=== PATIENT | male | born 1950 | race Caucasian/White ===

== ENCOUNTER → 2016-12-03 12:55 | Outpatient (CLI) | payer MEDICARE, BC ==
[2015-10-30 10:07] VITALS: BMI 33.1
[~2016-12-03 12:55] MED LIST: ASPIRIN325 MG PO; CO Q-10200 MG PO; FENOFIBRATE PO; FISH OIL PO; HYDROCODONE-APA1 TAB PO; LASIX40 MG PO; MEDROL DOSE PACK4 MG PO; MICRO-K10 MEQ PO; NIASPAN500 MG PO; NITROSTAT0.4 MG SL; PRILOSEC20 MG PO; VALTREX1000 MG PO; VITAMIN B-1000 MCG/M IM; VITAMIN D250000 UNIT PO
== END | disposition home or self-care (01) ==
LOC: D.MRI 12-02 14:30
DX: M60.9 Myositis, unspecified (principal); R53.1 Weakness

== ENCOUNTER → 2017-03-30 10:00 | Outpatient (CLI) | payer MEDICARE, BC ==
[2015-10-30 10:07] VITALS: BMI 33.1
== END | disposition home or self-care (01) ==
LOC: D.US 10:00
DX: I65.21 Occlusion and stenosis of right carotid artery (principal)

== ENCOUNTER 2017-04-06 08:51 | Emergency (ER) | payer MEDICARE, BC ==
[2015-10-30 10:07] VITALS: BMI 33.1
[2017-04-06 09:32] LABS: BASOPHILS 0.3 % (0-2); EOSINOPHILS 2.2 % (0-7); HEMATOCRIT 43.4 % (42.0-54.0); HEMOGLOBIN 14.6 g/dL (13.5-17.5); IMMATURE GRANULOCYTES 0.2 % (0-5); MCH 31.9 pg (26.0-34.0); MCHC 33.6 g/dL (31.0-37.0); MEAN PLATELET VOLUME 10.9 fL (7.4-10.4); MONOCYTES 17.2 % (2-11); NEUTROPHILS 57.1 % (40-80); PLATELET COUNT 170 10x3/uL (130-400); RBC 4.57 10x6/uL (4.20-6.10); RDW 12.8 % (11.5-14.5)
[2017-04-06 09:48] LABS: ALBUMIN 3.7 g/dL (3.4-5.0); BILIRUBIN - TOTAL 0.2 mg/dL (0.2-1.3); CARBON DIOXIDE 28.2 mmol/L (21.0-32.0); CREATININE - SERUM 1.3 mg/dL (0.6-1.3); POTASSIUM - SERUM 4.2 mmol/L (3.5-5.1); PROTEIN - SERUM 7.5 g/dL (6.4-8.2)
== END 2017-04-06 10:35 | disposition home or self-care (01) ==
LOC: D.ER 08:51
PROVIDERS: Emergency Medicine
DX: S01.81XA Laceration without foreign body of other part of head, initial encounter (principal); X58.XXXA Exposure to other specified factors, initial encounter; Y93.89 Activity, other specified; Y92.89 Other specified places as the place of occurrence of the external cause; Z95.0 Presence of cardiac pacemaker; I12.9 Hypertensive chronic kidney disease with stage 1 through stage 4 chronic kidney disease, or unspecified chronic kidney disease; N18.9 Chronic kidney disease, unspecified

== ENCOUNTER → 2017-04-06 10:47 | Outpatient (CLI) | payer MEDICARE, BC ==
[2015-10-30 10:07] VITALS: BMI 33.1
== END | disposition home or self-care (01) ==
LOC: D.CT 09:00
DX: I25.10 Atherosclerotic heart disease of native coronary artery without angina pectoris (principal)

== ENCOUNTER → 2017-10-25 10:13 | Outpatient (CLI) | payer MEDICARE, BC ==
[2015-10-30 10:07] VITALS: BMI 33.1
== END | disposition home or self-care (01) ==
LOC: D.US 10-24 10:30
DX: I65.21 Occlusion and stenosis of right carotid artery (principal)

== ENCOUNTER 2018-03-23 07:03 | Emergency (ER) | payer MEDICARE, BC ==
[~2018-03-23] VITALS: Ht 172.7 cm; Wt 94.5 kg
[2018-03-23 07:11] VITALS: Ht 172.7 cm; Wt 94.5 kg
[2018-03-23] MEDS ORDERED: PLAVIX75 MG PO (07:13)
[2018-03-23] MEDS ORDERED: CORTISPORIN OTI10 M1 EACH EAR (07:35)
[2018-03-23 07:52] VITALS: BP 159/86
== END 2018-03-23 07:52 | disposition home or self-care (01) ==
LOC: D.ER 07:03
DX: T16.1XXA Foreign body in right ear, initial encounter (principal); X58.XXXA Exposure to other specified factors, initial encounter; Y93.89 Activity, other specified; Y92.018 Other place in single-family (private) house as the place of occurrence of the external cause; R42 Dizziness and giddiness; R11.0 Nausea; I12.9 Hypertensive chronic kidney disease with stage 1 through stage 4 chronic kidney disease, or unspecified chronic kidney disease; N18.3 Chronic kidney disease, stage 3 (moderate)

== ENCOUNTER 2018-05-02 08:47 | Outpatient (CLI) | payer MEDICARE, BC ==
[~2018-05-02] VITALS: Ht 172.7 cm; Wt 94.1 kg
[~2018-05-02 08:47] MED LIST changes: +CORTISPORIN OTI10 M1 EACH EAR; +PLAVIX75 MG PO
[2018-05-02] MEDS ORDERED: ZYLOPRIM300 MG PO (09:36)
[2018-05-02] MEDS ORDERED: BAYER CHEWABLE81 MG PO (09:37)
[2018-05-02] MEDS ORDERED: PEPCID40 MG PO (09:37)
[2018-05-02 09:45] VITALS: Ht 172.7 cm; Wt 94.1 kg
== END 2018-05-02 17:55 | disposition home or self-care (01) ==
LOC: D.OPS 08:47 → D.CT 11:30 → D.OPS 17:55
DX: I65.23 Occlusion and stenosis of bilateral carotid arteries (principal); Z01.812 Encounter for preprocedural laboratory examination

== ENCOUNTER 2018-07-16 11:41 | Observation (INO) | payer MEDICARE, BC ==
[~2018-07-16] VITALS: Ht 172.7 cm; Wt 91.4 kg
--- NOTE | ~2018-07-16 | HEMODYNAMI ---
PATIENT:YVES ALVARADO MEDICAL RECORD: [id number] : 52 LOCATION:[facility] D.2120 ADMISSION DATE: 07/16/18 Generatedon:07/17/201815:00 Patient name: YVES ALVARADO Patient #: [id number] SSN: : Date of study: 07/17/2018 Page: Of Hemodynamic Procedure Report Patient Data Patient Demographics Procedure consent was obtained First Name: YVES Gender: Male Last Name: CHRISTIANO : 1950 [facility] Initial: JR Age: 68 year(s) Patient #: [id number] Race: Unknown Additional ID: [id number] Contact details [address]: [address] [place] [address] [address]ET State: [place] City: [place] Zip code: [address] Admission Admission Data Admission Date: 07/16/2018 Admission Time: 14:17 Room #: D.2120 Weight (lbs.): 200.62 Weight (kg.): 91 Lab Results Lab Result Date: 07/17/2018 Lab Result Time: 0:00 Biochemistry Name Units Result Min Max BUN mg/dl 15 --(--*-)-- 7 18 Creatinine mg/dl 1.2 --(---*)-- 0.6 1.3 CBC Name Units Result Min Max Hemoglobin g/dl 14 --(*---)-- 13.5 17.5 Platelets 10^3/l 196 --(*---)-- 130 400 Procedure Procedure Types Cath Procedure Diagnostic Procedure C [facility] w/Coronaries PCI Procedure Coronary Stent Coronary Stent Initial Procedure Description Procedure Date Procedure Date: 07/17/2018 Procedure Start Time: 14:28 Procedure End Time: 14:55 Procedure Staff Name Function Dejon Zambrano MD Performing Physician Sanjeev Onofre RT Monitor Jabari Diaz RN Nurse Cresencio Harvey RT Scrub Boogie Sierra RN Digital Learning Platforms Manager Procedure Data Cath Procedure Fluoroscopy Diagnostic fluoroscopy Total fluoroscopy Time: 7.8 time: 7.8 min min Diagnostic fluoroscopy Total fluoroscopy dose: 553 dose: 553 mGy mGy Contrast Material Contrast Material Type Amount (ml) Isovue 300 100 Entry Location Entry Primary Successful Side Size Upsize Upsize Entry Closure Fleming ccessful Closure Location (Fr) 1 (Fr) 2 (Fr) Remarks Device Remarks Femoral Right 6 Fr Mechanical artery Short Compression Estimated blood loss: 10 ml Diagnostic catheters Device Type Used For End Catheter Placement DIAGNOSTIC [place] 110cm 5 Procedure Fr catheter ([id number]) DIAGNOSTIC JL 3.5 5Fr Procedure catheter ([id number]) Procedure Complications No complications Procedure Medications Medication Administration Route Dosage 0.9% NaCl I.V. 100 ml/hr Oxygen etCO2 Nasal cannula 2 l/min Heparin Flush Bag added to field 2 bags (1000units/500ml NS) Lidocaine 2% added to field 20 Radial Cocktail added to field 1 syringe (Verapomil 2mg/Nitro 400mcg/Heparin 1500units) Versed I.V. 2 mg Fentanyl I.V. 100 mcg Radial Cocktail I.A. 1 syringe (Verapomil 2mg/Nitro 400mcg/Heparin 1500units) Versed I.V. 1 mg Heparin Bolus I.V. 5000 units Plavix P.O. 75 mg Hemodynamics Rest HGB: 14 (g/dl) Heart Rate: 75 (bpm) Pressure Samples Time Site Value (mmHg) Purpose Heart Use Rate(bpm) 14:29 LV 73/-3,-2 Snapshot 75 14:30 AO 59/33(45) Pullback 76 14:30 LV 71/-2,0 Pullback 76 14:38 AO 70/40(53) Snapshot 73 Gradients Valve Time Site 1 Site 2 Mean SEP/DFP Peak To Heart Use (mmHg) (sec/min) Peak Rate (mmHg) (bpm) Aortic 14:30 LV AO 10 23 12 76 71/-2,0 59/33(45) Calculations Valve P-P Mean Valve Index Valve Source Name Gradient Area Flow (cm2) Aortic 12 10 12 10 Snapshots Pre Cath Intra NCS Post Cath Vital Signs Time Heart Resp SPO2 etCO2 NIBP (mmHg) Rhythm Pain Sedation Rate (ipm) (%) (mmHg) Status Level (bpm) 14:13:01 73 17 96 32.4 129/82(109) NSR 0 (11) 10(A) , No pain 14:17:18 69 14 91 38.4 131/71(98) NSR 0 (11) 10(A) , No pain 14:21:32 70 12 92 27.8 125/79(103) NSR 0 (11) 10(A) , No pain 14:25:42 71 14 93 36.9 110/66(81) NSR 0 (11) 10(A) , No pain 14:30:02 75 12 92 31.6 95/59(72) NSR 0 (11) 10(A) , No pain 14:34:12 72 14 92 34.6 105/66(78) NSR 0 (11) 9(A) , No pain 14:38:28 72 13 92 33.1 106/63(88) NSR 0 (11) 9(A) , No pain 14:42:42 72 12 91 33.1 106/66(90) NSR 0 (11) 9(A) , No pain 14:46:56 72 13 91 33.9 114/69(93) NSR 0 (11) 9(A) , No pain 14:51:15 68 13 93 33.9 115/64(84) NSR 0 (11) 10(A) , No pain 14:55:29 73 15 94 28.6 116/75(99) NSR 0 (11) 9(A) , No pain Medications Time Medication Route Dose Verified Delivered Reason Not es Effectiveness by by 14:14:28 0.9% NaCl I.V. 100 Jabari Jabari Per physician ml/hr Joe Diaz RN RN 14:14:40 Oxygen etCO2 2 l/min Jabari Jabari Per physician Nasal Sobeidaigan Joe cannula RN RN 14:14:53 Heparin Flush added 2 bags Jabari Jabari used for Bag to Lorigan Lorigan procedure (1000units/500ml field OLSON RN NS) 14:15:04 Lidocaine 2% added 20ml Jabari Jabari for local to vial Lorigan Lorigan anesthetic field OLSON RN 14:15:22 Radial Cocktail added 1 Jabari Jabari used for (Verapomil to syringe Lorigan Lorigan procedure 2mg/Nitro field OLSON RN 400mcg/Heparin 1500units) 14:26:45 Versed I.V. 2 mg Jabari Jabari for sedation Joe iDaz RN RN 14:27:17 Fentanyl I.V. 100 mcg Jabari Jabari for sedation Joe Diaz RN RN 14:27:48 Versed I.V. 1 mg Jabari Jabari for sedation Joe Diaz RN RN 14:28:25 Radial Cocktail I.A. 1 Jabari Ashford for (Verapomil syringe Joe Renteria John vasodilation 2mg/Nitro WESLEY WING 400mcg/Heparin 1500units) 14:44:16 Heparin Bolus I.V. 5000 Jabari Jabari for units Joe Diaz anticoagulation RN RN 14:54:37 Plavix P.O. 75 mg Jabari Jabari for Joe Diaz antiplatelet RN RN therapy Procedure Log Time Note 13:40:21 Boogie Sierra RN sent for patient. Start room use. 13:53:21 Time tracking: Regular hours (M-F 7:00 - 5:00) 13:53:27 Plan of Care:Hemodynamics will remain stable., Cardiac rhythm will remain stable., Comfort level will be maintained., Respiratory function will remain adequate., Patient/ family verbilizes understanding of procedure., Procedure tolerated without complication., Recovers from procedure without complications.. 13:54:03 Patient Weight : 200.62 lbs 13:54:27 Lab Result : Creatinine 1.2 mg/dl 13:54:27 Lab Result : BUN 15 mg/dl 13:54:27 Lab Result : Platelets 196 10^3/l 13:54:27 Lab Result : Hemoglobin 14 g/dl 13:54:44 H&P Date Dictated: 07/16/2018 Within 30 days and on chart.. 14:03:20 Patient received from Med II to CCL 3 Alert and oriented. Tansferred to table in Supine position. 14:03:28 Warm blankets applied, and kathleen hugger turned on for patient comfort. 14:03:33 Correct patient and procedure confirmed by team. 14:03:35 Signed procedure consent form obtained from patient. 14:03:35 ECG and BP/O2 sat monitors applied to patient. 14:11:40 Vital chart was started 14:11:42 Baseline sample Acquired. 14:14:28 0.9% NaCl 100 ml/hr I.V. was administered by Jabari Diaz RN; Per physician; 14:14:40 Oxygen 2 l/min etCO2 Nasal cannula was administered by Jabari Diaz RN; Per physician; 14:14:53 Heparin Flush Bag (1000units/500ml NS) 2 bags added to field was administered by Jabari Diaz RN; used for procedure; 14:15:04 Lidocaine 2% 20ml vial added to field was administered by Jabari Diaz RN; for local anesthetic; 14:15:22 Radial Cocktail (Verapomil 2mg/Nitro 400mcg/Heparin 1500units) 1 syringe added to field was administered by Jabari Diaz RN; used for procedure; 14::35 Rhythm: sinus rhythm 14::37 Full Disclosure recording started 14::38 Pre-procedure instructions explained to patient. 14::39 Pre-op teaching completed and patient verbalized understanding. 14:21:42 Family in patients room. 14::44 Patient NPO since Midnight. 14:21:46 Is the patient allergic to Iodine/contrast media? No. 14:21:47 Is patient on blood thinner?Yes 14:21:50 ACC The patient was administered the following blood thiners within the last 24 hours: ACCPlavix 14:21:53 Patient diabetic? No. 14:22:10 Previous problem with sedation/anesthesia? No ? 14:22:13 Snore? Yes 14:22:18 Sleep apnea? No 14:22:19 Deviated septum? No 14:22:20 Opens mouth fully? Yes 14:22:21 Sticks out tongue? Yes 14:22:22 Airway obstruction? No ? 14:22:24 Dentures? No ? 14:22:29 Pre procedure: right dorsailis pedis pulse 1+ Palpable, but thready & weak; easily obliterated 14:22:31 Modified Jr's test Ulnar < 7 seconds 14:22:33 Patient pain scale 0/10 ?. 14:22:37 IV patent on arrival in left forearm with 0.9% NaCl at [facility]. 14:22:39 Lab results completed and on chart. 14:22:45 Right Radial & Right Groin area was prepped with chlora-prep and draped in sterile fashion 14:22:46 Alarms reviewed by R. N. 14:22:46 Sharps counted by scrub and verified by R.N. 14:22:52 Use device set Radial Dx or PCI 14:22:56 ACIST Syringe (12492) opened to sterile field. 14:22:56 Medline Cath Pack ([id number]) opened to sterile field. 14:22:57 Bag Decanter (2001S) opened to sterile field. 14:22:58 ACIST Hand Control (59369) opened to sterile field. 14:22:59 ACIST Manifold (98386) opened to sterile field. 14:22:59 Tegaderm 4 x 4 (1626W) opened to sterile field. 14:23:00 DIAGNOSTIC WIRE .035 260cm J wire (314117) opened to sterile field. 14:23:01 MBrace Wrist Support ([id number]) opened to sterile field. 14:23:02 SHEATH 6FR Slender (87-8175) opened to sterile field. 14:23:10 --------ALL STOP TIME OUT------ 14:23:10 Final Timeout: patient, procedure, and site verified with staff and physician. All members of the team are in agreement. 14:23:13 Right Radial & Right Groin site verified by team. 14:23:16 Physical assessment completed. ASA score P 2 - A patient with mild systemic disease as per Dejon Zambrano MD. 14:23:19 Sedation plan: IV Moderate Sedation Medication:Versed, Fentanyl 14:26:45 Versed 2 mg I.V. was administered by Jabari Diaz RN; for sedation; 14:27:17 Fentanyl 100 mcg I.V. was administered by Jabari Diaz RN; for sedation; 14:27:48 Versed 1 mg I.V. was administered by Jabari Diaz RN; for sedation; 14::59 Procedure started. 14:28:06 Local anesthetic to right radial artery with Lidocaine 2% by Dejon Zambrano MD.INITIAL ACCESS ONLY 14:28:24 A 6 Fr Short sheath was inserted into the Right Femoral artery 14:28:25 Radial Cocktail (Verapomil 2mg/Nitro 400mcg/Heparin 1500units) 1 syringe I.A. was administered by Dejon Zambrano MD; for vasodilation; 14:28:30 A DIAGNOSTIC [place] 110cm 5 Fr catheter (256479) was advanced over the wire and used for Procedure. 14:29:01 Zero performed for pressure channel P1 14:29:58 LV angiography performed. 14:30:00 LV gram done using FITZPATRICK 14:30:14 EF : 55 % 14:30:52 Injector settings: Ml/sec: 7, Volume: 15, 14:32:05 RCA angiography performed. 14:33:32 Catheter removed. 14:33:44 GUIDE 6FR EBU 3.5 catheter ([id number]) opened to sterile field. 14:34:07 6 Fr EBU 3.5 guide catheter was inserted over the wire 14:36:49 Guide Catheter removed. unable to cannulate vessel. 14:37:10 A DIAGNOSTIC JL 3.5 5Fr catheter (854139P) was advanced over the wire and used for Procedure. 14:38:28 LCA angiography performed. 14:40:41 Catheter exchanged over wire. 14:40:47 Use device set [place] PCI 14:40:52 GUIDE 6FR HS I catheter (LA6HSI) opened to sterile field. 14:40:57 WHISPER 300cm guide wire ([id number]) opened to sterile field. 14:40:58 INFLATOR Merit BasixCompak (TY1841) opened to sterile field. 14:43:30 6 Fr HS 1 guide catheter was inserted over the wire 14:44:16 Heparin Bolus 5000 units I.V. was administered by Jabari Diaz RN; for anticoagulation; 14:45:18 WHISPER wire advanced. 14:46:16 Wire advanced across lesion. 14:50:53 Place stent Inflation Number: 1 A TITO OTW 3.0 x 12 stent ([id number]) was prepped and advanced across the Mid RCA. The stent was deployed at 14 ELDON for 0:10 (min:sec). 14:51:23 Stent catheter was removed intact over wire. 14:51:24 Wire removed. 14:51:24 Guide catheter removed. 14:51:29 TR BAND Standard ([id number]) opened to sterile field. 14:51:44 Sheath removed intact; hemostasis achieved with Mechanical Compression to the Right Femoral artery. 14:51:46 Procedure ended.(Physican Out) 14:52:25 Fluoroscopy time 07.80 minutes. 14:52:33 Fluoroscopy dose: 553 mGy 14:52:33 Flurop Dose total: 553 14:53:02 Contrast amount:Isovue 300 100ml. 14:53:04 Sharps counted by scrub and verified by R.N. 14:53:05 Insertion/operative site no bleeding no hematoma. 14:53:13 TR band inflated with 10cc of air. 14:53:16 Post Procedure Pulses reassessed and unchanged 14:53:19 Post-procedure physical assessment completed. ASA score P 2 - A patient with mild systemic disease as per Dejon Zambrano MD. 14:53:21 Post procedure rhythm: unchanged. 14:53:25 Estimated blood loss: 10 ml 14:53:28 Post procedure instruction explained to patient.Patient verbalizes understanding. 14:53:29 Patient needs reinforcement of post procedure teaching. 14:53:48 Procedure type changed to Cath procedure, Diagnostic procedure, LHC, LHC w/Coronaries, PCI procedure, Coronary Stent, Coronary Stent Initial 14:53:49 Procedure and supply charges have been captured, reviewed, submitted and are correct. 14:53:52 Procedure Complication : No complications 14:54:37 Plavix 75 mg P.O. was administered by Jabari Diaz RN; for antiplatelet therapy; 14:54:50 Vital chart was stopped 14:54:52 See physician's report for complete and final results. 14:55:22 Report given to [facility]. 14:55:26 Patient transfered to [facility] II with Bed. 14:55:30 Procedure ended. 14:55:30 Full Disclosure recording stopped 14:58:48 End room use (Document Last) Intervention Summary Intervention Notes Time ActionType Lesion and Equipment Action# Pressure Duration Attributes Used 14:50:53 Place stent Mid RCA TITO OTW 3.0 1 14 00:10 x 12 stent ([id number]) Device Usage Item Name Manufacture Quantity Catalog Hospital Part Current Minim al Lot# / Number Charge Number Stock Stock Serial# Code ACIST Syringe Acist 1 69017 752941 433467 754257 20 (04379) Medical Systems Inc Medline Cath Medline 1 [id number] 259653 31489 812421 5 Pack ([id number]) Bag Decanter Microtek 1 310187 43807 530342 5 () Medical Inc. ACIST Hand Acist 1 18246 660637 808777 802905 5 Control Medical (51028) Systems Inc ACIST Acist 1 17941 720241 813625 426123 5 Manifold Medical (15447) Systems Inc Tegaderm 4 x 3M 1 1626W 912726 046406 578746 5 4 (1626W) DIAGNOSTIC St Cesar 1 303916 479152 107995 306407 30 WIRE .035 260cm J wire (589984) MBrace Wrist Advanced 1 140-0250-00 786001 96984 825156 5 Support Vascular ([id number]) Dynamics SHEATH 6FR Terumo 1 [id number] 974289 315173 812621 40 Slender (80-1060) DIAGNOSTIC Terumo 1 40-5013 790780 696070 050357 5 [place] 110cm 5 Fr catheter (672574) GUIDE 6FR EBU Medtronic 1 [id number] 299336 57954 064684 3 3.5 catheter ([id number]) DIAGNOSTIC JL Cardinal 1 625863W 095425 075442 238977 5 3.5 5Fr Health catheter (742165N) GUIDE 6FR HS Medtronic 1 LA6HSI 446713 37201 100759 1 I catheter (LA6HSI) WHISPER 300cm Cyr 1 [id number] 101278 777824 080277 5 guide wire Vascular (4855274TH) INFLATOR Merit 1 WX2621 543154 113960 313968 15 [facility] Medical BasixCompak (SL1624) TITO OTW 3.0 Medtronic 1 [id number] 568824 650904 096274 5 [id number] x 12 stent ([id number]) TR BAND Terumo 1 JKC79-IVD 855078 703978 918447 40 Standard ([id number]) Signature Audit [place] Stage Time Signature Unsigned Intra-Procedure 07/17/2018 Sanjeev Onofre 3:00:05 PM RT(R) Signatures Monitor : Sanjeev Onofre RT Signature : Date : Time : [facility] [address] [facility] [place] [address]
--- NOTE | ~2018-07-16 | MORECARE ---
CASE MANAGEMENT DISCHARGE SUMMARY PATIENT: YVES ALVARADO UNIT: [id number] ADM DATE: 07/16/18 AGE: 68 : 51 SEX: M ROOM/BED: D.2120 AUTHOR: MIKE GOLD PHYSICIAN: REFERRING PHYSICIAN: WATSON HERNANDEZ MD DATE OF SERVICE: 07/19/18 Discharge Plan Patient Name: YVES ALVARADO [facility] 1950 Planned Disposition: Home Anticipated Discharge Date: 07/18/18 Discharge Date: 07/18/2018 Expected LOS: 2 Initial Reviewer: [email or web address] Initial Review Date: 07/19/2018 Generated: 07/19/18 10:00 am Coverage Notice Reviewer: [email or web address] Stalin Tristan Notice Issued Date-Time: 07/17/2018 14:25 Notice Type: Medicare Outpatient Observation Notice Notice Delivered To: Family Member Relationship to Patient: Spouse Body Corporate Manager Name: JAH ALVARADO Delivery Method: HAND - Hand Delivered Karuna Days: Prior Verbal Notification: Recipient Understood Notice: Yes Recipient Signature: Yes Med Rec Note Co-signed by Attending: Coverage Notice Comment: DISCUSSED SMITH WITH , WHO IS [facility] EMERGENCY CONTACT- 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 Patient Name: YVES ALVARADO Page [id number] at 0900 All edits/amendments must be made on the electronic document DICTATION DATE: 07/19/1859 LACE PINNER: [email or web address] 07/19/18 0859 RPT#: [id number] DC DATE:07/18/18 STATUS: DIS IN [facility] [address] [place] [address] END OF REPORT
--- NOTE | ~2018-07-16 | OP ---
PATIENT NAME: YVES ALVARADO MEDICAL RECORD: [id number] :52 LOCATION:D.M2 D.2120 ADMISSION DATE:07/16/18 SURGEON: VANESSA MORGAN MD DATE OF OPERATION: 07/17/2018 PROCEDURES: Left heart catheterization, selective coronary angiography, right radial approach. CATHETERS: A 5-Czech radial sheath, [place] catheter. The procedure was well tolerated. Proceed with a PTCA and stenting of the right. FINDINGS: Left ventriculography in 30-degree FITZPATRICK view: Normal wall motion, normal systolic function. CORONARY ANATOMY: LEFT MAIN: Left main is free of disease. LAD: LAD is free of disease. Area of previous stenting is widely patent. No progression of bishop paiute disease. CIRCUMFLEX: Small vessel, free of disease. RIGHT CORONARY ARTERY: Dominant artery, gives rise to PDA, shows 80% stenosis right at the takeoff of an RV branch. PLAN: Intervention momentarily. DESCRIPTION OF PROCEDURE: Using indwelling sheath, a hockey stick guide catheter provided excellent guide catheter support, followed by 300 cm Whisper wire, placed across totally occluded right coronary and distal course of vessel. Stent deployed is a 3.0 x 12 mm [place] drug-eluting stent up to 14 atmospheres. Final angiography shows excellent resolution of 80% stenosis, no significant residual. LARISSA flow was 3 throughout the procedure placed. The patient was previously on Plavix, heparin was used in the lab. Sheath closed with TR band. TRANSINT:[id number] Voice Confirmation ID: [id number] DOCUMENT ID: [id number] VANESSA MORGAN MD at 1310 CC: [id number] DICTATION DATE: 07/17/18 1459 BUMPER OPERATOR: 07/18/18 0048 DIS IN 07/18/18 [facility] [address] [place] [id number]
[~2018-07-16 11:41] MED LIST changes: +BAYER CHEWABLE81 MG PO; +PEPCID40 MG PO; +ZYLOPRIM300 MG PO
[2018-07-16 12:05] LABS: BASOPHILS 0.3 % (0-2); EOSINOPHILS 2.2 % (0-7); HEMATOCRIT 44.3 % (42.0-54.0); HEMOGLOBIN 14.9 g/dL (13.5-17.5); IMMATURE GRANULOCYTES 0.4 % (0-5); LYMPHOCYTES 24.2 % (15-50); MCH 32.1 pg (26.0-34.0); MCHC 33.6 g/dL (31.0-37.0); MCV 95.5 fL (80.0-100.0); MEAN PLATELET VOLUME 10.7 fL (7.4-10.4); MONOCYTES 18.7 % (2-11); NEUTROPHILS 54.2 % (40-80); PLATELET COUNT 197 10x3/uL (130-400); RBC 4.64 10x6/uL (4.20-6.10); RDW 13.4 % (11.5-14.5); WBC 7.2 10x3/uL (4.8-10.8)
[2018-07-16 12:10] VITALS: BP 191/152
[2018-07-16 12:13] LABS: APTT 30.6 SECONDS (22.8-39.4); INR 0.97 (0.85-1.17); PROTIME 12.4 SECONDS (11.6-15.0)
[2018-07-16 12:19] LABS: ALBUMIN 3.7 g/dL (3.4-5.0); ALKALINE PHOSPHATASE 56 U/L (46-116); ALT (SGPT) 43 U/L (10-68); BILIRUBIN - TOTAL 0.32 mg/dL (0.2-1.3); CALC OSMOLALITY 278 mosm/kg (275-300); CALCIUM 8.8 mg/dL (8.5-10.1); CARBON DIOXIDE 28.5 mmol/L (21.0-32.0); CHLORIDE - SERUM 103 mmol/L (98-107); CREATININE - SERUM 1.3 mg/dL (0.6-1.3); GLUCOSE 98 mg/dL (74-106); POTASSIUM - SERUM 4.2 mmol/L (3.5-5.1); PROTEIN - SERUM 7.8 g/dL (6.4-8.2); SODIUM 139 mmol/L (136-145); UREA NITROGEN 14 mg/dL (7-18); eGFR NON AFRICAN AMERICAN 58 mL/min (90-120)
[2018-07-16 12:30] LABS: CKMB 4.4 U/L (0.0-3.6); CREATINE KINASE 305 UL (21-232); MAGNESIUM - SERUM 1.9 mg/dL (1.8-2.4); PRO BNP 35 pg/mL (0-125)
[2018-07-16 12:31] LABS: TROPONIN-I < 0.017 ng/mL (0.000-0.060)
[2018-07-16 13:00] VITALS: BP 151/84
[2018-07-16 14:18] VITALS: BP 132/69
[2018-07-16 15:00] VITALS: BP 124/74
[2018-07-16 15:23] LABS: CKMB 3.7 U/L (0.0-3.6); CREATINE KINASE 268 UL (21-232)
[2018-07-16 15:26] LABS: TROPONIN-I < 0.017 ng/mL (0.000-0.060)
[2018-07-16] MEDS ORDERED: K-TAB10 MEQ PO (15:53)
[2018-07-16] MEDS ORDERED: PRINIVIL20 MG PO (15:54)
[2018-07-16] MEDS ORDERED: PEPCID40 MG PO (15:56)
[2018-07-16 15:57] VITALS: BP 125/69; BMI 30.4
[2018-07-16] MEDS ORDERED: ZYLOPRIM300 MG PO (15:59)
[2018-07-16] MEDS ORDERED: NORVASC2.5 MG PO (16:03)
[2018-07-16 20:25] LABS: CKMB 3.2 U/L (0.0-3.6); CREATINE KINASE 231 UL (21-232)
[2018-07-16 20:29] LABS: TROPONIN-I < 0.017 ng/mL (0.000-0.060)
[2018-07-16 20:30] VITALS: BP 118/69
[2018-07-16] MEDS ORDERED: LOPRESSOR25 MG PO (21:27)
[2018-07-17 02:56] LABS: BASOPHILS 0.3 % (0-2); EOSINOPHILS 2.9 % (0-7); HEMATOCRIT 41.5 % (42.0-54.0); IMMATURE GRANULOCYTES 0.5 % (0-5); LYMPHOCYTES 24.5 % (15-50); MCH 32.3 pg (26.0-34.0); MCHC 33.7 g/dL (31.0-37.0); MCV 95.6 fL (80.0-100.0); MEAN PLATELET VOLUME 10.6 fL (7.4-10.4); MONOCYTES 15.3 % (2-11); NEUTROPHILS 56.5 % (40-80); PLATELET COUNT 196 10x3/uL (130-400); RBC 4.34 10x6/uL (4.20-6.10); RDW 13.5 % (11.5-14.5); WBC 6.2 10x3/uL (4.8-10.8)
[2018-07-17 03:22] LABS: CALC OSMOLALITY 280 mosm/kg (275-300); CALCIUM 8.2 mg/dL (8.5-10.1); CARBON DIOXIDE 29.2 mmol/L (21.0-32.0); CHLORIDE - SERUM 103 mmol/L (98-107); CKMB 2.7 U/L (0.0-3.6); CREATINE KINASE 208 UL (21-232); CREATININE - SERUM 1.2 mg/dL (0.6-1.3); GLUCOSE 116 mg/dL (74-106); POTASSIUM - SERUM 3.9 mmol/L (3.5-5.1); SODIUM 140 mmol/L (136-145); UREA NITROGEN 15 mg/dL (7-18); eGFR NON AFRICAN AMERICAN 64 mL/min (90-120)
[2018-07-17 03:23] LABS: TROPONIN-I < 0.017 ng/mL (0.000-0.060)
[2018-07-17 08:54] VITALS: BP 121/71
[2018-07-17 15:28] VITALS: Ht 172.7 cm; Wt 91.4 kg
[2018-07-17] MEDS ORDERED: PLAVIX75 MG PO (15:41)
[2018-07-17 22:11] VITALS: BP 144/86
[2018-07-18 01:13] VITALS: BP 137/75
[2018-07-18 05:18] VITALS: BP 101/59
[2018-07-18 09:33] VITALS: BP 99/63
[2018-07-18 11:36] VITALS: BP 113/67
== END 2018-07-18 13:30 | disposition home or self-care (01) ==
LOC: D.ER 11:41 → D.EDHOLD 14:17 → D.ER 14:17 → OBSVTIME 14:18 → D.M2 14:52 → D.EDHOLD 14:52 → D.SDCHOLD 07-17 13:07 → D.M2 07-17 13:15
PROVIDERS: Family Medicine; Internal Medicine Cardiovascular Disease
DX: I25.110 Atherosclerotic heart disease of native coronary artery with unstable angina pectoris (principal); Z95.5 Presence of coronary angioplasty implant and graft; E78.5 Hyperlipidemia, unspecified; I12.9 Hypertensive chronic kidney disease with stage 1 through stage 4 chronic kidney disease, or unspecified chronic kidney disease; N18.3 Chronic kidney disease, stage 3 (moderate); Z86.73 Personal history of transient ischemic attack (TIA), and cerebral infarction without residual deficits; I73.9 Peripheral vascular disease, unspecified
CPT/HCPCS: 93458; C9600

== ENCOUNTER 2018-07-20 16:39 | Inpatient (IN) | payer MEDICARE, BC ==
[~2018-07-20] VITALS: Ht 172.7 cm; Wt 96.2 kg
[~2018-07-20 16:39] MED LIST changes: +K-TAB10 MEQ PO; +LOPRESSOR25 MG PO; +NORVASC2.5 MG PO; +PRINIVIL20 MG PO
[2018-07-20 18:09] LABS: BASOPHILS 0.2 % (0-2); EOSINOPHILS 0.9 % (0-7); HEMATOCRIT 46.3 % (42.0-54.0); IMMATURE GRANULOCYTES 0.3 % (0-5); LYMPHOCYTES 16.8 % (15-50); MCH 32.5 pg (26.0-34.0); MCHC 34.6 g/dL (31.0-37.0); MCV 93.9 fL (80.0-100.0); MEAN PLATELET VOLUME 10.9 fL (7.4-10.4); MONOCYTES 12.7 % (2-11); NEUTROPHILS 69.1 % (40-80); PLATELET COUNT 231 10x3/uL (130-400); RBC 4.93 10x6/uL (4.20-6.10); RDW 13.2 % (11.5-14.5); WBC 10.1 10x3/uL (4.8-10.8)
[2018-07-20 18:18] LABS: INR 1.09 (0.85-1.17); PROTIME 13.6 SECONDS (11.6-15.0)
[2018-07-20 18:20] LABS: D-DIMER-QUANTITATIVE 0.5 ug/mLFEU (0.20-0.54)
[2018-07-20 19:17] LABS: ALBUMIN 3.8 g/dL (3.4-5.0); ALKALINE PHOSPHATASE 55 U/L (46-116); ALT (SGPT) 33 U/L (10-68); BILIRUBIN - TOTAL 0.66 mg/dL (0.2-1.3); CALC OSMOLALITY 276 mosm/kg (275-300); CALCIUM 9.4 mg/dL (8.5-10.1); CARBON DIOXIDE 27.8 mmol/L (21.0-32.0); CHLORIDE - SERUM 98 mmol/L (98-107); CREATININE - SERUM 1.7 mg/dL (0.6-1.3); GLUCOSE 107 mg/dL (74-106); PROTEIN - SERUM 8.2 g/dL (6.4-8.2); SODIUM 134 mmol/L (136-145); UREA NITROGEN 37 mg/dL (7-18); eGFR NON AFRICAN AMERICAN 43 mL/min (90-120)
[2018-07-20 19:33] LABS: CKMB 3.2 U/L (0.0-3.6); CREATINE KINASE 449 UL (21-232); PRO BNP 24 pg/mL (0-125)
[2018-07-20 19:39] LABS: TROPONIN-I 0.161 ng/mL (0.000-0.060)
[2018-07-20 20:03] VITALS: BP 119/70
[2018-07-20 23:24] VITALS: BP 137/73; BMI 32.3
[2018-07-21] VITALS: BP 137/73
[2018-07-21 04:00] VITALS: BP 101/66
[2018-07-21 06:13] LABS: BASOPHILS 0.3 % (0-2); HEMATOCRIT 43.3 % (42.0-54.0); HEMOGLOBIN 14.5 g/dL (13.5-17.5); IMMATURE GRANULOCYTES 0.1 % (0-5); LYMPHOCYTES 26.9 % (15-50); MCH 31.7 pg (26.0-34.0); MCHC 33.5 g/dL (31.0-37.0); MCV 94.7 fL (80.0-100.0); MEAN PLATELET VOLUME 11.2 fL (7.4-10.4); MONOCYTES 14.4 % (2-11); NEUTROPHILS 55.3 % (40-80); PLATELET COUNT 202 10x3/uL (130-400); RBC 4.57 10x6/uL (4.20-6.10); RDW 13.2 % (11.5-14.5)
[2018-07-21 06:28] LABS: ALBUMIN 3.3 g/dL (3.4-5.0); ANION GAP 13.7 mmol/L (8-16); BILIRUBIN - TOTAL 0.61 mg/dL (0.2-1.3); CARBON DIOXIDE 26.3 mmol/L (21.0-32.0); CREATININE - SERUM 1.7 mg/dL (0.6-1.3); MAGNESIUM - SERUM 2.1 mg/dL (1.8-2.4); PHOSPHOROUS 3.8 mg/dL (2.5-4.9); PROTEIN - SERUM 7.4 g/dL (6.4-8.2)
[2018-07-21 09:03] VITALS: BP 127/75
[2018-07-21 12:24] VITALS: Ht 172.7 cm; Wt 96.2 kg
[2018-07-21 12:33] VITALS: BP 123/68
[2018-07-21 16:38] VITALS: BP 112/66
[2018-07-21 19:54] VITALS: BP 122/69
[2018-07-21 20:34] LABS: APPEARANCE CLEAR (CLEAR); BILIRUBIN NEGATIVE (NEGATIVE); COLOR YELLOW (YELLOW); GLUCOSE NEGATIVE (NEGATIVE); KETONE NEGATIVE (NEGATIVE); NITRITE NEGATIVE (NEGATIVE); PROTEIN NEGATIVE (NEGATIVE); SPECIFIC GRAVITY 1.015 (1.005-1.020)
[2018-07-22] VITALS (8 sets, daily range): BP systolic 111–142; BP diastolic 62–83
[2018-07-22 04:54] LABS: ANION GAP 9.9 mmol/L (8-16); CALCIUM 8.4 mg/dL (8.5-10.1); CARBON DIOXIDE 27.4 mmol/L (21.0-32.0); CREATININE - SERUM 1.3 mg/dL (0.6-1.3); POTASSIUM - SERUM 4.3 mmol/L (3.5-5.1)
[2018-07-22 04:55] LABS: BASOPHILS 0.4 % (0-2); EOSINOPHILS 4.2 % (0-7); HEMATOCRIT 42.2 % (42.0-54.0); IMMATURE GRANULOCYTES 0.2 % (0-5); LYMPHOCYTES 29.7 % (15-50); MCH 31.5 pg (26.0-34.0); MCHC 33.2 g/dL (31.0-37.0); MEAN PLATELET VOLUME 10.3 fL (7.4-10.4); MONOCYTES 15.8 % (2-11); NEUTROPHILS 49.7 % (40-80); PLATELET COUNT 199 10x3/uL (130-400); RBC 4.44 10x6/uL (4.20-6.10); RDW 13.1 % (11.5-14.5); WBC 5.3 10x3/uL (4.8-10.8)
[2018-07-23] VITALS: BP 130/71
[2018-07-23 04:00] VITALS: BP 129/68
[2018-07-23 06:05] LABS: BASOPHILS 0.3 % (0-2); EOSINOPHILS 3.9 % (0-7); HEMATOCRIT 41.8 % (42.0-54.0); HEMOGLOBIN 14.2 g/dL (13.5-17.5); IMMATURE GRANULOCYTES 0.2 % (0-5); LYMPHOCYTES 28.1 % (15-50); MCH 31.9 pg (26.0-34.0); MCV 93.9 fL (80.0-100.0); MEAN PLATELET VOLUME 11.1 fL (7.4-10.4); MONOCYTES 13.1 % (2-11); NEUTROPHILS 54.4 % (40-80); PLATELET COUNT 203 10x3/uL (130-400); RBC 4.45 10x6/uL (4.20-6.10); WBC 6.4 10x3/uL (4.8-10.8)
[2018-07-23 06:23] LABS: ANION GAP 14.1 mmol/L (8-16); CALCIUM 8.1 mg/dL (8.5-10.1); CARBON DIOXIDE 24.1 mmol/L (21.0-32.0); CREATININE - SERUM 1.1 mg/dL (0.6-1.3); POTASSIUM - SERUM 4.2 mmol/L (3.5-5.1)
[2018-07-23 08:35] VITALS: BP 140/84
[2018-07-23 12:08] VITALS: BP 131/81
== END 2018-07-23 15:53 | disposition home or self-care (01) | DRG 392 ==
LOC: D.ER 16:39 → D.MS 22:30 → OBSVTIME 23:03 → D.MS 07-21 16:31
PROVIDERS: Emergency Medicine; Family Medicine; Internal Medicine Nephrology
DX: R11.0 Nausea (principal); N17.9 Acute kidney failure, unspecified; E87.1 Hypo-osmolality and hyponatremia; I10 Essential (primary) hypertension; I25.10 Atherosclerotic heart disease of native coronary artery without angina pectoris; I12.9 Hypertensive chronic kidney disease with stage 1 through stage 4 chronic kidney disease, or unspecified chronic kidney disease; N18.3 Chronic kidney disease, stage 3 (moderate); R41.0 Disorientation, unspecified; K59.00 Constipation, unspecified

== ENCOUNTER → 2018-09-12 10:28 | Outpatient (CLI) | payer MEDICARE, BC ==
[2018-07-21 12:24] VITALS: BMI 32.2
== END | disposition home or self-care (01) ==
LOC: D.US 10:28
DX: I65.23 Occlusion and stenosis of bilateral carotid arteries (principal)

== ENCOUNTER → 2018-12-25 10:08 | Outpatient (CLI) | payer MEDICARE, BC ==
[2018-07-21 12:24] VITALS: BMI 32.2
== END | disposition home or self-care (01) ==
LOC: D.HCCARDIO 10:08
PROVIDERS: ATTEND Internal Medicine Cardiovascular Disease
DX: I25.10 Atherosclerotic heart disease of native coronary artery without angina pectoris (principal)

== ENCOUNTER 2019-01-17 12:12 | Outpatient (CLI) | payer MEDICARE, BC ==
[~2019-01-17] VITALS: Ht 172.7 cm; Wt 95.9 kg
--- NOTE | ~2019-01-17 | HEMODYNAMI ---
PATIENT:YVES ALVARADO MEDICAL RECORD: [id number] : 52 LOCATION:[facility] ADMISSION DATE: 01/17/19 Generatedon:01/17/201916:40 Patient name: YVES ALVARADO Patient #: [id number] SSN: : Date of study: 01/17/2019 Page: Of Hemodynamic Procedure Report Patient Data Patient Demographics Procedure consent was obtained First Name: YVES Gender: Male Last Name: CHRISTIANO : 1950 [facility] Initial: JAM Age: 69 year(s) Patient #: [id number] Race: Unknown Additional ID: [id number] Contact details Address: [address] [place] [address] [address]ET State: [place] City: [place] Zip code: [address] Past Medical History Allergies Allergen Reaction Date Comments Reported Other allergy 01/17/2019 CIPRO, LIPITOR, NITRO-BID, STATINS, ZOCOR Admission Admission Data Admission Date: 01/17/2019 Admission Time: 12:12 Weight (lbs.): 214 Weight (kg.): 97.07 Lab Results Lab Result Date: 01/17/2019 Lab Result Time: 0:00 Biochemistry Name Units Result Min Max BUN mg/dl 22 --(----)-* 7 18 Creatinine mg/dl 1.5 --(----)-* 0.6 1.3 CBC Name Units Result Min Max Hematocrit % 42.7 --(*---)-- 42 54 Hemoglobin g/dl 14.3 --(*---)-- 13.5 17.5 Procedure Procedure Types Cath Procedure Diagnostic Procedure [facility] w/Coronaries Sedation Charges Moderate Sedation up to 15 minutes Procedure Description Procedure Date Procedure Date: 01/17/2019 Procedure Start Time: 16:26 Procedure End Time: 16:39 Procedure Staff Name Function Jennifer Mckeon RN Hull Builder Jabari Diaz RN Nurse Sanjeev Onofre RT Scrub Kemar Iverson MD Performing Physician Andres Gillespie RT Monitor Procedure Data Cath Procedure Fluoroscopy Diagnostic fluoroscopy Total fluoroscopy Time: 1.6 time: 1.6 min min Diagnostic fluoroscopy Total fluoroscopy dose: 504 dose: 504 mGy mGy Contrast Material Contrast Material Type Amount (ml) Isovue 300 57 Entry Location Entry Primary Successful Side Size Upsize Upsize Entry Closure Succes sful Closure Location (Fr) 1 (Fr) 2 (Fr) Remarks Device Remarks Femoral Right 5 Fr Exoseal artery Estimated blood loss: 5 ml Diagnostic catheters Device Type Used For End Catheter Placement MULTIPACK JL 4.0 5Fr Procedure catheter MULTIPACK 3DRC 5Fr Procedure catheter MULTIPACK Pigtail 5 Fr Procedure catheter Procedure Complications No complications Procedure Medications Medication Administration Route Dosage 0.9% NaCl I.V. 100 ml/hr Oxygen etCO2 Nasal cannula 2 l/min Heparin Flush Bag added to field 2 bags (1000units/500ml NS) Lidocaine 2% added to field 20 Versed I.V. 1 mg Fentanyl I.V. 50 mcg Versed I.V. 1 mg Fentanyl I.V. 50 mcg Hemodynamics Rest HGB: 14.3 (g/dl) Heart Rate: 89 (bpm) Pressure Samples Time Site Value (mmHg) Purpose Heart Use Rate(bpm) 16:34 LV 109/2,14 Snapshot 75 16:35 AO 115/61(85) Pullback 79 16:35 LV 118/0,13 Pullback 79 Gradients Valve Time Site 1 Site 2 Mean SEP/DFP Peak To Heart Use (mmHg) (sec/min) Peak Rate (mmHg) (bpm) Aortic 16:35 LV AO 8 20 3 79 118/0,13 115/61(85) Calculations Valve P-P Mean Valve Index Valve Source Name Gradient Area Flow (cm2) Aortic 3 8 3 8 Snapshots Pre Cath Intra NCS Post Cath Vital Signs Time Heart Resp SPO2 etCO2 NIBP Rhythm Pain Sedation Rate (ipm) (%) (mmHg) (mmHg) Status Level (bpm) 16:04:45 85 24 97 32.8 139/82(97) NSR 0 (11) 10(A) , No pain 16:08:53 78 13 96 36.5 104/68(77) NSR 0 (11) 10(A) , No pain 16:13:01 61 13 96 37.3 97/62(72) NSR 0 (11) 10(A) , No pain 16:17:11 62 12 92 35.8 80/49(61) NSR 0 (11) 10(A) , No pain 16:21:17 62 12 95 40.3 91/49(73) NSR 0 (11) 10(A) , No pain 16:25:25 60 12 95 40.3 85/55(65) NSR 0 (11) 10(A) , No pain 16:29:24 65 15 97 37.3 101/71(83) NSR 0 (11) 9(A) , No pain 16:33:32 72 12 97 41.8 113/66(85) NSR 0 (11) 9(A) , No pain 16:37:44 72 12 98 41.8 107/67(89) NSR 0 (11) 10(A) , No pain Medications Time Medication Route Dose Verified Delivered Reason Notes Eff ectiveness by by 16:03:33 0.9% NaCl I.V. 100 Jabari Jabari Per ml/hr Joe Diaz physician RN RN 16:03:42 Oxygen etCO2 2 Jabari Jabari for low 02 Nasal l/min Lorigan Lorigan sats cannula RN RN 16:03:54 Heparin Flush added 2 Jabari Jabari used for Bag to bags Lorigan Lorigan procedure (1000units/500ml field RN RN NS) 16:04:04 Lidocaine 2% added 20ml Jabari Jabari for local to vial Lorigan Lorigan anesthetic field RN RN 16:20:34 Versed I.V. 1 mg Jabari Jabari for Lorigan Lorigan sedation RN RN 16:20:45 Fentanyl I.V. 50 Jabari Jabari for mcg Lorigan Lorigan sedation RN RN 16:24:52 Versed I.V. 1 mg Jabari Jabari for Lorigan Lorigan sedation RN RN 16:25:00 Fentanyl I.V. 50 Jabari Jabari for mcg Lorigan Lorigan sedation RN tar chaser Log Time Note 15:47:03 Signed procedure consent form obtained from patient. 15:47:05 Diagnostic Cath status Elective 15:47:06 Time tracking: Regular hours (M-F 7:00 - 5:00) 15:47:10 Plan of Care:Hemodynamics will remain stable., Cardiac rhythm will remain stable., Comfort level will be maintained., Respiratory function will remain adequate., Patient/ family verbilizes understanding of procedure., Procedure tolerated without complication., Recovers from procedure without complications.. 15:48:20 H&P Date Dictated: 12/18/2018 Within 30 days and on chart., H&P Addendum completed by physician on day of procedure. (MUST COMPLETE FOR ALL OUTPATIENTS). 15:49:22 Patient allergic to Other allergyCIPRO, LIPITOR, NITRO-BID, STATINS, ZOCOR 15:50:09 Jennifer Mckeon RN sent for patient. Start room use. 15:54:25 Patient Weight : 214 lbs 15:55:02 Lab Result : BUN 22 mg/dl 15:55:02 Lab Result : Creatinine 1.5 mg/dl 15:55:02 Lab Result : Hemoglobin 14.3 g/dl 15:55:02 Lab Result : Hematocrit 42.7 % 15:58:38 Patient received from Pre/Post Procedure Room to CCL 1 Alert and oriented. Tansferred to table in Supine position. 15:58:39 Warm blankets applied, and kathleen hugger turned on for patient comfort. 15:58:40 Correct patient and procedure confirmed by team. 15:58:41 ECG and BP/O2 sat monitors applied to patient. 16:03:33 0.9% NaCl 100 ml/hr I.V. was administered by Jabari Diaz RN; Per physician; 16:03:37 Vital chart was started 16:03:42 Oxygen 2 l/min etCO2 Nasal cannula was administered by Jabari Diaz RN; for low 02 sats; 16:03:54 Heparin Flush Bag (1000units/500ml NS) 2 bags added to field was administered by Jabari Diaz RN; used for procedure; 16:04:04 Lidocaine 2% 20ml vial added to field was administered by Jabari Diaz RN; for local anesthetic; 16:07:34 Full Disclosure recording started 16:07:39 Rhythm: sinus rhythm 16:07:41 Baseline sample Acquired. 16:07:42 Pre-procedure instructions explained to patient. 16:07:43 Pre-op teaching completed and patient verbalized understanding. 16:07:44 Family in patients room. 16:07:46 Patient NPO since Midnight. 16:07:48 Is patient on blood thinner?No 16:07:50 Patient diabetic? No. 16:07:52 Previous problem with sedation/anesthesia? No ? 16:07:54 Snore? Yes 16:07:56 Sleep apnea? No 16:07:58 Deviated septum? No 16:08:06 Opens mouth fully? Yes 16:08:08 Sticks out tongue? Yes 16:08:14 Airway obstruction? No ? 16:08:16 Dentures? No ? 16:08:19 Pre procedure: right dorsailis pedis pulse 2+ Normal; easily identifiable; not easily obliterated 16:08:23 Patient pain scale 0/10 ?. 16:08:29 IV patent on arrival in left hand with 0.9% NaCl at [facility]. 16:08:33 Lab results completed and on chart. 16:08:36 Right groin area was prepped with chlora-prep and draped in sterile fashion 16:08:37 Alarms reviewed by R. N. 16:08:37 Sharps counted by scrub and verified by R.N. 16:08:41 Use device set Femoral Dx 16:08:42 ACIST Syringe (18503) opened to sterile field. 16:08:42 Bag Decanter (2002S) opened to sterile field. 16:08:43 ACIST Manifold (45866) opened to sterile field. 16:08:44 ACIST Hand Control (70797) opened to sterile field. 16:08:45 Tegaderm 4 x 4 (1626W) opened to sterile field. 16:08:46 Medline Cath Pack ([id number]) opened to sterile field. 16:08:47 DIAGNOSTIC WIRE .035 260cm J wire (054796) opened to sterile field. 16:08:48 DIAGNOSTIC Multipack 5Fr catheter set (UZ4781) opened to sterile field. 16:08:48 SHEATH 5FR [place] (IPM932) opened to sterile field. 16:16:43 Zero performed for pressure channel P1 16:19:37 --------ALL STOP TIME OUT------ 16:19:37 Final Timeout: patient, procedure, and site verified with staff and physician. All members of the team are in agreement. 16:19:38 Right groin site verified by team. 16:19:41 Maximum allowable Isovue 300 dose 300ml. Physician notified. (300ml for normal creatinines. For patients with creatinine of 1.7 or higher multiply weight(kg) x 5 divided by creatinine.) 16:19:46 Fire Safety Assessment: A--An alcohol-based skin anteseptic being used preoperatively., C--Open oxygen or nitrous oxide is being used., D--An ESU, laser, or fiber-optic light is being used. 16:19:49 Physical assessment completed. ASA score P 2 - A patient with mild systemic disease as per Dejon Zambrano MD. 16:19:53 Sedation plan: IV Moderate Sedation Medication:Versed, Fentanyl 16:20:34 Versed 1 mg I.V. was administered by Jabari Diaz RN; for sedation; 16:20:45 Fentanyl 50 mcg I.V. was administered by Jabari Diaz RN; for sedation; 16:24:52 Versed 1 mg I.V. was administered by Jabari Diaz RN; for sedation; 16:25:00 Fentanyl 50 mcg I.V. was administered by Jabari Diaz RN; for sedation; 16:26:22 Procedure started. 16:26:28 Local anesthetic to right femoral artery with Lidocaine 2% by Kemar Iverson MD.INITIAL ACCESS ONLY 16:26:48 A 5 Fr sheath was inserted into the Right Femoral artery 16:29:40 A MULTIPACK JL 4.0 5Fr catheter was advanced over the wire and used for Procedure. 16:29:47 LCA angiography performed. 16:30:52 Catheter exchanged over wire. 16:31:17 A MULTIPACK 3DRC 5Fr catheter was advanced over the wire and used for Procedure. 16:31:37 RCA angiography performed. 16:32:37 Catheter exchanged over wire. 16:32:45 A MULTIPACK Pigtail 5 Fr catheter was advanced over the wire and used for Procedure. 16:34:37 LV gram done using FITZPATRICK 16:34:39 Injector settings: Ml/sec: 10, Volume: 20, 16:34:43 LV hemodynamics recorded. 16:34:48 EF : 55 % 16:35:04 Catheter removed. 16:35:17 EXOSEAL 5Fr (EX500) opened to sterile field. 16:35:35 Sheath removed intact; hemostasis achieved with Exoseal to the Right Femoral artery. 16:35:37 Procedure ended.(Physican Out) 16:36:05 Fluoroscopy time 01.60 minutes. 16:36:09 Flurop Dose total: 504 16:36:09 Fluoroscopy dose: 504 mGy 16:36:12 Contrast amount:Isovue 300 57ml. 16:36:13 Sharps counted by scrub and verified by R.N. 16:36:14 Insertion/operative site no bleeding no hematoma. 16:36:16 Post-op/insertion site Right Femoral artery dressed using a 4 x 4 and Tegaderm. 16:36:20 Post right femoral artery:stable, soft, clean and dry 16:38:23 Post Procedure Pulses reassessed and unchanged 16:38:26 Post procedure rhythm: unchanged. 16:38:30 Estimated blood loss: 5 ml 16:38:31 Post procedure instruction explained to patient.Patient verbalizes understanding. 16:38:32 Patient needs reinforcement of post procedure teaching. 16:38:41 Procedure type changed to Cath procedure, Diagnostic procedure, LHC, LHC w/Coronaries, Sedation Charges, Moderate Sedation up to 15 minutes 16:39:23 Procedure and supply charges have been captured, reviewed, submitted and are correct. 16:39:25 Procedure Complication : No complications 16:39:27 Vital chart was stopped 16:39:27 See physician's report for complete and final results. 16:39:29 Report given to Pre/Post Procedure Room. 16:39:32 Patient transfered to Pre/Post Procedure Room with Stretcher. 16:39:34 Procedure ended. 16:39:34 Full Disclosure recording stopped 16:39:42 End room use (Document Last) Device Usage Item Name Manufacture Quantity Catalog Hospital Part Current Minimal L ot# / Number Charge Number Stock Stock Serial# Code ACIST Acist 1 75551 613020 775033 581110 20 Syringe Medical (54672) Systems Inc Bag Microtek 1 826470 07477 348286 5 Decanter Medical Inc. () ACIST Acist 1 16233 441287 359554 115891 5 Manifold Medical (38517) Systems Inc ACIST Hand Acist 1 98869 362191 967985 702351 5 Control Medical (09489) Systems Inc Tegaderm 4 3M 1 1626W 588084 097849 835356 5 x 4 (1626W) Medline Medline 1 [id number] 354204 54999 626777 5 Cath Pack ([id number]) DIAGNOSTIC St Cesar 1 051167 153673 120425 731521 30 WIRE .035 260cm J wire (071758) DIAGNOSTIC Cardinal 1 QZ2342 614526 49861 308167 30 Multipack Health 5Fr catheter set (JE6447) SHEATH 5FR Terumo 1 BVE465 277798 283984 296315 5 [place] (YJR889) MULTIPACK Cardinal 1 744037 5 JL 4.0 5Fr Health catheter MULTIPACK Cardinal 1 881962 5 3DRC 5Fr Health catheter MULTIPACK Cardinal 1 379104 5 Pigtail 5 Health Fr catheter EXOSEAL 5Fr Cardinal 1 EX500 315409 118879 340182 10 (EX500) Health Signature Audit [place] Stage Time Signature Unsigned Intra-Procedure 01/17/2019 Andres Gillespie 4:40:17 PM RT(R) Signatures Monitor : Andres Gillespie RT Signature : Date : Time : [address] [address]
[2019-01-17] MEDS ORDERED: PRAVASTATIN SOD10 MG PO (12:31)
[2019-01-17 12:42] VITALS: BP 139/56; Ht 172.7 cm; Wt 95.9 kg
[2019-01-17 12:52] LABS: BASOPHILS 0.3 % (0-2); EOSINOPHILS 2.6 % (0-7); HEMATOCRIT 42.7 % (42.0-54.0); HEMOGLOBIN 14.3 g/dL (13.5-17.5); IMMATURE GRANULOCYTES 0.3 % (0-5); LYMPHOCYTES 24.8 % (15-50); MCH 31.3 pg (26.0-34.0); MCHC 33.5 g/dL (31.0-37.0); MCV 93.4 fL (80.0-100.0); MEAN PLATELET VOLUME 10.8 fL (7.4-10.4); MONOCYTES 11.4 % (2-11); NEUTROPHILS 60.6 % (40-80); PLATELET COUNT 189 10x3/uL (130-400); RBC 4.57 10x6/uL (4.20-6.10); RDW 13.7 % (11.5-14.5); WBC 7.3 10x3/uL (4.8-10.8)
[2019-01-17 12:59] LABS: ANION GAP 13.2 mmol/L (8-16); CALCIUM 9.4 mg/dL (8.5-10.1); CARBON DIOXIDE 26.8 mmol/L (21.0-32.0); CREATININE - SERUM 1.5 mg/dL (0.6-1.3)
--- NOTE | 2019-01-17 17:05 | NUR ---
2L NC, NO RESP DISTRESS. RIGHT GROIN 6F EXOSEAL CDI, NO BLEEDING OR HEMATOMA NOTED. NO C/O PAIN OR NAUSEA. VSS. FAMILY AT BEDSIDE, CALL LIGHT WITHIN REACH.
--- NOTE | 2019-01-17 17:35 | NUR ---
RESTING QUIETLY WITH EYES CLOSED. RIGHT GROIN 5F EXOSEAL CDI, NO BLEEDING OR HEMATOMA NOTED. DENIES ANY NEEDS. VSS. WILL CONTINUE TO MONITOR.
--- NOTE | 2019-01-17 18:00 | NUR ---
HOB ELEVATED 30 DEGREES. RIGHT GROIN 5F EXOSEAL CDI, NO BLEEDING OR HEMATOMA NOTED. SIPPING ON DRINK AND EATING SANDWICH WITH NO C/O NAUSEA. VSS. WILL CONTINUE TO MONITOR.
--- NOTE | 2019-01-17 18:05 | NUR ---
DISCHARGE INSTRUCTIONS GIVEN TO PT AND , BOTH VERBALIZED UNDERSTANDING.
--- NOTE | 2019-01-17 18:35 | NUR ---
LEFT PIV D/C'D WITH CATHETER INTACT, BAND AID TO SITE. RIGHT GROIN 5F EXOSEAL CDI, NO BLEEDING NOTED. UP TO BEDSIDE TO GET DRESSED. AMBULATED TO RESTROOM.
--- NOTE | 2019-01-17 18:45 | NUR ---
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 LEFT FACILITY WITH FAMILY AND ALL PERSONAL BELONGINGS.
== END 2019-01-17 18:45 | disposition home or self-care (01) ==
LOC: D.CATH 12:12
PROVIDERS: ATTEND Internal Medicine Cardiovascular Disease
DX: I20.9 Angina pectoris, unspecified (principal); R94.30 Abnormal result of cardiovascular function study, unspecified; Z01.812 Encounter for preprocedural laboratory examination

== ENCOUNTER → 2019-03-06 10:39 | Outpatient (CLI) | payer MEDICARE, BC ==
[2019-01-17 12:42] VITALS: BMI 32.1
[~2019-03-06 10:39] MED LIST changes: +PRAVASTATIN SOD10 MG PO
== END | disposition home or self-care (01) ==
LOC: D.HCCARDIO 10:39
PROVIDERS: ATTEND Internal Medicine Cardiovascular Disease
DX: I25.10 Atherosclerotic heart disease of native coronary artery without angina pectoris (principal)

== ENCOUNTER → 2019-03-27 10:26 | Outpatient (CLI) | payer MEDICARE, BC ==
[2019-01-17 12:42] VITALS: BMI 32.1
[~2019-03-27 10:26] MED LIST changes: +DURICEF500 MG PO; +HYDROCODON-ACE1 EAC7 PO; +PROTONIX40 MG PO; +XARELTO10 MG PO; +ZETIA10 MG PO
== END | disposition home or self-care (01) ==
LOC: D.US 10:26
PROVIDERS: ATTEND Family Medicine
DX: I65.23 Occlusion and stenosis of bilateral carotid arteries (principal)

== ENCOUNTER 2019-04-27 07:20 | Day surgery (SDC) | payer MEDICARE, BC ==
[2019-04-26 11:37] LABS: HEMATOCRIT 41.5 % (42.0-54.0); HEMOGLOBIN 14.3 g/dL (13.5-17.5); MCH 32.9 pg (26.0-34.0); MCHC 34.5 g/dL (31.0-37.0); MCV 95.6 fL (80.0-100.0); MEAN PLATELET VOLUME 10.5 fL (7.4-10.4); RBC 4.34 10x6/uL (4.20-6.10); RDW 13.7 % (11.5-14.5)
[2019-04-26 11:41] LABS: ANION GAP 9.8 mmol/L (8-16); CALCIUM 8.8 mg/dL (8.5-10.1); CARBON DIOXIDE 29.6 mmol/L (21.0-32.0); CREATININE - SERUM 1.2 mg/dL (0.6-1.3); POTASSIUM - SERUM 4.4 mmol/L (3.5-5.1)
[2019-04-26 11:57] LABS: PROTIME 12.7 SECONDS (11.6-15.0)
[2019-04-26 11:58] LABS: APTT 30.3 SECONDS (22.8-39.4)
[~2019-04-27] VITALS: Ht 172.7 cm; Wt 93.4 kg
[~2019-04-27 07:20] MED LIST changes: -DURICEF500 MG PO; -HYDROCODON-ACE1 EAC7 PO
[2019-04-27 07:48] VITALS: BP 131/76; Ht 172.7 cm; Wt 93.4 kg
[2019-04-27] MEDS ORDERED: HYDROCODON-ACE1 EAC7 PO (11:39)
[2019-04-27] MEDS ORDERED: DURICEF500 MG PO (11:39)
--- NOTE | 2019-04-27 13:33 | NUR ---
DISCHARGE INSTRUCTIONS REVIEWED WITH PATIENT AND SPOUSE, DISCHARGED HOME VIA WHEELCHAIR TO PRIVATE VEHICLE WITH SPOUSE
--- NOTE | 2019-04-28 08:37 | OP ---
PATIENT NAME: YVES ALVARADO MEDICAL RECORD: [id number] :52 LOCATION:[facility] ADMISSION DATE: SURGEON: JESUS RUIZ DO DATE OF OPERATION: 04/27/2019 PROCEDURE PERFORMED: Right middle finger trigger finger release and right ring finger revision trigger finger release. PREOPERATIVE DIAGNOSES: Right ring finger recurrent trigger finger and right middle finger trigger finger. POSTOPERATIVE DIAGNOSES: Right ring finger recurrent trigger finger and right middle finger trigger finger. INDICATIONS: Mr. Alvarado is a 69-year-old male who had the right ring finger trigger release done some time ago. It started to trigger again and the surgeon he had seen said that they would do it again, but he had the middle finger start up as well and he was sent to me. He said he wanted me to do it and do the right middle finger as well. I informed him I would and the risk of infection, bleeding, damage to the digital nerves due to the revision be more higher risk, but I would be very careful, bowstringing of the tendons and risk of that and need for further surgery. He was okay with that and signed the consent. SURGEON: Jesus Ruiz DO DESCRIPTION OF PROCEDURE: The patient was taken to the operative suite, laid in supine position. The right upper extremity was prepped and draped in sterile fashion after he was sedated and an LMA was placed, given 2 grams Ancef preoperatively. Timeout was performed and everyone was in agreement with the correct side, site, patient and procedure. The incision then began over the distal crease and the palm over the previous incision of the ring finger and extended over to the middle finger. Careful dissection was then made down to the A1 yohan of the ring finger. There was a nylon suture that was encountered. It was removed at that time. Then, the A1 yohan had been released. There were maybe a few fibers left of it that was released and part of the A2 yohan as well both distally and then there was some more synovitis proximally. This was removed off the flexor tendons. These were then pulled through the incision to ensure there was a complete release and there was. The attention was then drawn to the middle finger. Ragnells were used for careful dissection down to the tendon. The A1 yohan was encountered and cleaned off and released under direct loupe visualization and from proximal to distal and then also any fibers of the left were released proximally. The tendons were then pulled out through the incision to ensure there was no catching and there was not. The tourniquet was then let down at 17 minutes. The site was injected with 0.5% Marcaine with epinephrine 10 mL around the side and then 4-0 nylon was used in a running stitch to close the incision. Adaptic, 4 x 4's, Kerlix, and Coban was then lightly wrapped on the hand. He was awakened and taken to recovery in stable condition. Blood loss was minimal. COMPLICATIONS: None. TRANSINT:[id number] Voice Confirmation ID: [id number] DOCUMENT ID: [id number] OPERATIVE REPORT [id number] YVES ALVARADO MICHAEL D, DO at 0837 CC: [id number] DICTATION DATE: 04/27/19 1144 YARD CLEANER: 04/27/19 1301 [facility] 04/27/19 [id number] [place] [address]
== END 2019-04-27 13:33 | disposition home or self-care (01) ==
LOC: D.OPS 07:20 → D.PAN 09:30 → D.OPS 10:30
PROVIDERS: Anesthesiology; ATTEND Orthopaedic Surgery
DX: M65.331 Trigger finger, right middle finger (principal); M65.341 Trigger finger, right ring finger

== ENCOUNTER → 2019-04-30 12:00 | Outpatient (CLI) | payer MEDICARE, BC ==
[2019-04-27 07:48] VITALS: BMI 31.3
[~2019-04-30 12:00] MED LIST changes: +DURICEF500 MG PO; +HYDROCODON-ACE1 EAC7 PO
== END | disposition home or self-care (01) ==
LOC: D.US 12:00
PROVIDERS: ATTEND Internal Medicine Cardiovascular Disease
DX: I65.23 Occlusion and stenosis of bilateral carotid arteries (principal)

== ENCOUNTER 2019-06-15 05:30 | Day surgery (SDC) | payer MEDICARE, BC ==
[2019-06-14 11:36] LABS: HEMATOCRIT 44.1 % (42.0-54.0); HEMOGLOBIN 14.6 g/dL (13.5-17.5); MCH 32.5 pg (26.0-34.0); MCHC 33.1 g/dL (31.0-37.0); MCV 98.2 fL (80.0-100.0); MEAN PLATELET VOLUME 10.3 fL (7.4-10.4); RBC 4.49 10x6/uL (4.20-6.10); RDW 13.1 % (11.5-14.5)
[2019-06-14 12:03] LABS: ANION GAP 12.1 mmol/L (8-16); CALCIUM 8.8 mg/dL (8.5-10.1); CARBON DIOXIDE 27.3 mmol/L (21.0-32.0); CREATININE - SERUM 1.2 mg/dL (0.6-1.3); POTASSIUM - SERUM 4.4 mmol/L (3.5-5.1)
[~2019-06-15] VITALS: Ht 172.7 cm; Wt 93.4 kg
[2019-06-15 06:26] VITALS: BP 129/80; Ht 172.7 cm; Wt 93.4 kg
[2019-06-15] MEDS ORDERED: HYDROCODON-ACE1 EAC7 PO (07:46)
--- NOTE | 2019-06-15 09:01 | OP ---
PATIENT NAME: YVES ALVARADO MEDICAL RECORD: [id number] :52 LOCATION:[facility] ADMISSION DATE: SURGEON: JESUS RUIZ DO DATE OF OPERATION: 06/15/2019 PROCEDURE PERFORMED: Right trigger thumb A1 yohan release. PREOPERATIVE DIAGNOSIS: Right trigger thumb. POSTOPERATIVE DIAGNOSIS: Right trigger thumb. INDICATIONS: Mr. Alvarado is a 69-year-old male who had the beginnings of trigger thumb. He has had a previous trigger fingers released in the past and he has tired of dealing with the pain and he did not want to try injections as a child before and failed and he wanted it released. He was informed of the risk including damage to nerves in the area, infection, bleeding, need for further surgery, incomplete release, and bowstringing of the tendon. He is okay with those risks and signed the consent. SURGEON: Jesus Ruiz DO DESCRIPTION OF PROCEDURE: The patient was taken to the operative suite. I was assisted by Kemar Espinal, surgical certified surgical tech/first assistant. Once he was taken to the operative suite. He was given 2 grams Ancef and sedated and LMA was placed. The right upper extremity was then prepped and draped in sterile fashion. Timeout was performed, everyone was in agreement with the correct side, site, patient, and procedure. Incision then began along the crease of the thumb, right over the A1 yohan. Careful dissection was made. Once the incision was made on the skin with a scalpel, careful dissection was then made and blunt dissection with Ragnells down to the A1 yohan. This was then released and ensuring good release pulled the tendon out through the incision. The site was then anesthetized with 10 mL of 0.5% Marcaine plain and tourniquet was let down. The skin was then closed with 4-0 Monocryl in a horizontal mattress fashion. He was awakened and taken to recovery after a dressing was applied in stable condition. BLOOD LOSS: Minimal. COMPLICATIONS: None. TRANSINT:[id number] Voice Confirmation ID: [id number] DOCUMENT ID: [id number] JESUS RUIZ DO at 0901 CC: [id number] DICTATION DATE: 06/15/19 08 SOFTWARE TEST AUTOMATION ENGINEER: 06/15/19 0858 [facility] [address] [place] [address]
== END 2019-06-15 09:49 | disposition home or self-care (01) ==
LOC: D.OPS 05:30 → D.PAN 11:00
PROVIDERS: Anesthesiology; ATTEND Orthopaedic Surgery
DX: M65.311 Trigger thumb, right thumb (principal)

== ENCOUNTER → 2019-07-31 09:33 | Outpatient (CLI) | payer MEDICARE, BC ==
[~2019-07-31] VITALS: Ht 172.7 cm; Wt 93.6 kg
--- NOTE | ~2019-07-31 | HEMODYNAMI ---
PATIENT:YVES ALVARADO MEDICAL RECORD: [id number] : 52 LOCATION:[facility] ADMISSION DATE: 07/31/19 Generatedon:07/31/201914:28 Patient name: YVES ALVARDAO Patient #: [id number] : 1950 Date of study: 07/31/2019 Page: Of Hemodynamic Procedure Report Patient Data Patient Demographics Procedure consent was obtained First Name: YVES Gender: Male Last Name: CHRISTIANO : 1950 Middle Initial: JAM Age: 69 year(s) Patient #: [id number] Race: SSN: [id number] Additional ID: [id number] Contact details Address: [address] [place] [address] [address] State: [place] City: [place] Zip code: [address] Past Medical History Allergies Allergen Reaction Date Comments Reported Other allergy 01/17/2019 CIPRO, LIPITOR, NITRO-BID, STATINS, ZOCOR Admission Admission Data Admission Date: 07/31/2019 Admission Time: 9:33 Arrival Date: 07/31/2019 Arrival Time: 0:00 Admit Source: Other Insurance Payor: Medicare, Medicaid [facility] #: [id number] Height (in.): 68.11 BSA: 2.08 (m2) Height (cm.): 173 BMI: 31.41 (kg/m2) Weight (lbs.): 207.24 Weight (kg.): 94 Lab Results Lab Result Date: 07/31/2019 Lab Result Time: 0:00 Biochemistry Name Units Result Min Max BUN mg/dl 15 --(--*-)-- 7 18 Creatinine mg/dl 1.2 --(---*)-- 0.6 1.3 eGFR ml/min 64.92679 *-(----)-- 90 120 NONAFRICAN CBC Name Units Result Min Max Hemoglobin g/dl 14.2 --(*---)-- 13.5 17.5 Procedure Procedure Types Cath Procedure Diagnostic Procedure [facility] w/Coronaries Sedation Charges Moderate Sedation up to 15 minutes Procedure Description Procedure Date Procedure Date: 07/31/2019 Procedure Start Time: 14:15 Procedure End Time: 14:25 Procedure Staff Name Function Kemar Iverson MD Performing Physician Sahara Birmingham RT Monitor Janis Rocha RT Scrub Jabari Diaz RN Nurse Procedure Data Cath Procedure Fluoroscopy Diagnostic fluoroscopy Total fluoroscopy Time: 1.5 time: 1.5 min min Diagnostic fluoroscopy Total fluoroscopy dose: 445 dose: 445 mGy mGy Contrast Material Contrast Material Type Amount (ml) Isovue 300 45 Entry Location Entry Primary Successful Side Size Upsize Upsize Entry Closure Succes sful Closure Location (Fr) 1 (Fr) 2 (Fr) Remarks Device Remarks Femoral Right 5 Fr Exoseal artery Estimated blood loss: 5 ml Diagnostic catheters Device Type Used For End Catheter Placement MULTIPACK JL 4.0 5Fr Left Coronary catheter Angiography MULTIPACK 3DRC 5Fr Right Coronary catheter Angiography MULTIPACK Pigtail 5 Fr LV Angiography catheter Procedure Complications No complications Procedure Medications Medication Administration Route Dosage 0.9% NaCl I.V. 100 ml/hr Oxygen etCO2 Nasal cannula 2 l/min Heparin Flush Bag added to field 2 bags (1000units/500ml NS) Lidocaine 2% added to field 20 Versed I.V. 1 mg Fentanyl I.V. 50 mcg Versed I.V. 1 mg Fentanyl I.V. 50 mcg Hemodynamics Rest BSA: 2.08 (m2) HGB: 14.2 (g/dl) O2 Consumption: Estimated: 254.7 (ml/min) O2 Con sumption indexed: Estimated:122.45 (ml/min/m) Heart Rate: 87 (bpm) Pressure Samples Time Site Value (mmHg) Purpose Heart Use Rate(bpm) 14:23 LV 118/3,14 Snapshot 85 14:24 AO 113/70(81) Pullback 87 14:24 LV 110/-1,13 Pullback 87 Gradients Valve Time Site 1 Site 2 Mean SEP/DFP Peak To Heart Use (mmHg) (sec/min) Peak Rate (mmHg) (bpm) Aortic 14:24 LV AO 0 14 0 87 110/-1,13 113/70(81) Calculations Valve P-P Mean Valve Index Valve Source Name Gradient Area Flow (cm2) Aortic 0 0 0 0 Snapshots Pre Cath Intra NCS Post Cath Vital Signs Time Heart Resp SPO2 etCO2 NIBP Rhythm Pain Sedation Rate (ipm) (%) (mmHg) (mmHg) Status Level (bpm) 13:56:36 82 17 0 125/81(94) NSR 0 (11) 10(A) , No pain 14:00:45 85 21 97 0 115/76(87) NSR 0 (11) 10(A) , No pain 14:04:53 82 14 95 38.6 109/69(92) NSR 0 (11) 10(A) , No pain 14:08:59 80 15 97 33.3 100/68(84) NSR 0 (11) 10(A) , No pain 14:13:03 83 15 97 34 97/65(79) NSR 0 (11) 10(A) , No pain 14:17:04 79 12 95 38.5 98/67(80) NSR 0 (11) 9(A) , No pain 14:21:08 87 12 95 42.4 94/63(88) NSR 0 (11) 9(A) , No pain 14:25:08 85 12 96 42.4 98/70(81) NSR 0 (11) 9(A) , No pain Medications Time Medication Route Dose Verified Delivered Reason Notes Eff ectiveness by by 13:59:51 0.9% NaCl I.V. 100 Jabari Jabari Per ml/hr Joe Diaz physician RN RN 14:00:01 Oxygen etCO2 2 Jabari Jabari for low 02 Nasal l/min Lorigan Lorigan sats cannula RN RN 14:00:11 Heparin Flush added 2 Jabari Jabari used for Bag to bags Lorigan Lorigan procedure (1000units/500ml field RN RN NS) 14:00:20 Lidocaine 2% added 20ml Jabari Jabari for local to vial Lorigan Lorigan anesthetic field RN RN 14:06:13 Versed I.V. 1 mg Jabari Jabari for Lorigan Lorigan sedation RN RN 14:06:20 Fentanyl I.V. 50 Jabari Jabari for mcg Lorigan Lorigan sedation RN RN 14:12:57 Versed I.V. 1 mg Jabari Jabari for Lorigan Lorigan sedation RN RN 14:13:02 Fentanyl I.V. 50 Jabari Jabari for mcg Lorigan Lorigan sedation RN dry house tender Log Time Note 13:45:02 Jabari Diaz RN sent for patient. Start room use. 13:49:34 Diagnostic Cath Status : Elective 13:51:27 Lab Result : BUN 15 mg/dl 13:51:27 Lab Result : eGFR NONAFRICAN 64.28262 ml/min 13:51:27 Lab Result : Creatinine 1.2 mg/dl 13:51:27 Lab Result : Hemoglobin 14.2 g/dl 13:51:47 Informed consent obtained and on chart 13:54:20 Admit Source: Other 13:54:21 Arrival Date: 07/31/2019 12:00:00 AM 13:54:46 Insurance Payor : Medicare, Medicaid 13:54:52 Patient Height : 68.11 inches 13:54:57 Patient Weight : 207.24 lbs 13:55:08 Time tracking: Regular hours (M-F 7:00 - 5:00) 13:55:12 Plan of Care:Hemodynamics will remain stable., Cardiac rhythm will remain stable., Comfort level will be maintained., Respiratory function will remain adequate., Patient/ family verbilizes understanding of procedure., Procedure tolerated without complication., Recovers from procedure without complications.. 13:55:16 Patient received from Pre/Post Procedure Room to CCL 2 Alert and oriented. Tansferred to table in Supine position. 13:55:17 Warm blankets applied, and kathleen hugger turned on for patient comfort. 13:55:18 Correct patient and procedure confirmed by team. 13:55:18 ECG and BP/O2 sat monitors applied to patient. 13:55:19 Vital chart was started 13:55:21 Baseline sample Acquired. 13:55:25 Rhythm: sinus rhythm 13:57:16 Full Disclosure recording started 13:57:20 H&P Date Dictated: 07/31/2019 Within 30 days and on chart., H&P Addendum completed by physician on day of procedure. (MUST COMPLETE FOR ALL OUTPATIENTS). 13:57:21 Pre-procedure instructions explained to patient. 13:57:22 Pre-op teaching completed and patient verbalized understanding. 13:57:23 Family in patients room. 13:57:25 Patient NPO since Midnight. 13:57:26 Is the patient allergic to Iodine/contrast media? No. 13:57:28 Was the patient premedicated? Yes 13:57:30 Is patient on blood thinner?Yes 13:57:32 ACC The patient was administered the following blood thiners within the last 24 hours: ACCPlavix 13:57:34 Patient diabetic? No. 13:57:38 Previous problem with sedation/anesthesia? No ? 13:58:08 Snore? No 13:58:09 Sleep apnea? No 13:58:10 Deviated septum? No 13:58:10 Opens mouth fully? Yes 13:58:11 Sticks out tongue? Yes 13:58:12 Airway obstruction? No ? 13:58:15 Dentures? No ? 13:58:18 Pre procedure: right dorsailis pedis pulse 2+ Normal; easily identifiable; not easily obliterated 13:58:20 Pre procedure: left dorsailis pedis pulse 2+ Normal; easily identifiable; not easily obliterated 13:58:23 Patient pain scale 0/10 ?. 13:58:28 IV patent on arrival in left forearm with 0.9% NaCl at [facility]. 13:58:31 Lab results completed and on chart. 13:59:51 0.9% NaCl 100 ml/hr I.V. was administered by Jabari Diaz RN; Per physician; Verbal order read back and verified. 14:00:01 Oxygen 2 l/min etCO2 Nasal cannula was administered by Jabari Diaz RN; for low 02 sats; Verbal order read back and verified. 14:00:09 Risk of Mortality: <0.1 14:00:11 Heparin Flush Bag (1000units/500ml NS) 2 bags added to field was administered by Jabari Diaz RN; used for procedure; Verbal order read back and verified. 14:00:12 Risk of blood transfusion: 0.2 14:00:16 Risk of STACIE: 0.5 14:00:20 Lidocaine 2% 20ml vial added to field was administered by Jabari Diaz RN; for local anesthetic; Verbal order read back and verified. 14:00:22 Right groin area was prepped with chlora-prep and draped in sterile fashion 14:00:23 Alarms reviewed by RNena N. 14:00:23 Sharps counted by scrub and verified by RNenaN. 14:00:25 Physician arrived 14:00:25 --------ALL STOP TIME OUT------ 14:00:25 Final Timeout: patient, procedure, and site verified with staff and physician. All members of the team are in agreement. 14:00:27 Right groin site verified by team. 14:00:30 Fire Safety Assessment: A--An alcohol-based skin anteseptic being used preoperatively., C--Open oxygen or nitrous oxide is being used., D--An ESU, laser, or fiber-optic light is being used. 14:00:33 Physical assessment completed. ASA score P 2 - A patient with mild systemic disease as per Kemar Iverson MD. 14:00:35 2) 60-89 Mildly reduced kidney function, and other findings (as for stage 1) point to kidney disease. 14:00:53 Maximum allowable contrast dose (3.7 X eGFR X 0.75)177 ml. 14:00:56 Sedation plan: IV Moderate Sedation Medication:Versed, Fentanyl 14:06:13 Versed 1 mg I.V. was administered by Jabari Diaz RN; for sedation; Verbal order read back and verified. 14:06:20 Fentanyl 50 mcg I.V. was administered by Jabari Diaz RN; for sedation; Verbal order read back and verified. 14:08:34 Use device set Femoral Dx 14:08:35 ACIST Syringe (71018) opened to sterile field. 14:08:36 Bag Decanter (2002S) opened to sterile field. 14:08:36 Medline Cath Pack ([id number]) opened to sterile field. 14:08:38 ACIST Hand Control (70309) opened to sterile field. 14:08:38 ACIST Manifold (15240) opened to sterile field. 14:08:38 DIAGNOSTIC Multipack 5Fr catheter set (VG3058) opened to sterile field. 14:08:39 Tegaderm 4 x 4 (1626W) opened to sterile field. 14:08:40 SHEATH 5FR [place] ([id number]) opened to sterile field. 14:08:41 EMERALD Guide Wire (056-968) opened to sterile field. 14:12:57 Versed 1 mg I.V. was administered by Jabari Diaz RN; for sedation; Verbal order read back and verified. 14:13:02 Fentanyl 50 mcg I.V. was administered by Jabari Diaz RN; for sedation; Verbal order read back and verified. 14:13:14 Zero performed for pressure channel P1 14:15:39 Procedure started. 14:15:42 Local anesthetic to right femoral artery with Lidocaine 2% by Kemar Iverson MD.INITIAL ACCESS ONLY 14:16:07 A 5 Fr sheath was inserted into the Right Femoral artery 14:18:09 A MULTIPACK JL 4.0 5Fr catheter was advanced over the wire and used for Left Coronary Angiography. 14:18:40 LCA angiography performed. 14:18:42 Injector settings: Ml/sec: 3, Volume: 6, 14:19:05 Catheter removed. 14:19:24 A MULTIPACK 3DRC 5Fr catheter was advanced over the wire and used for Right Coronary Angiography. 14:20:54 RCA angiography performed. 14:20:56 Injector settings: Ml/sec: 3, Volume: 6, 14:21:36 Catheter removed. 14:21:53 ACCDominant side:Right 14:21:57 A MULTIPACK Pigtail 5 Fr catheter was advanced over the wire and used for LV Angiography. 14:23:20 LV hemodynamics recorded. 14:23:21 LV gram done using FITZPATRICK 14:23:24 Injector settings: Ml/sec: 5, Volume: 15, 14:23:37 EF : 55 % 14:24:00 Catheter removed. 14:24:02 EXOSEAL 5Fr (EX500) opened to sterile field. 14:24:34 Sheath removed intact; hemostasis achieved with Exoseal to the Right Femoral artery. 14:24:36 Procedure ended.(Physican Out) 14:24:44 Fluoroscopy time 01.50 minutes. 14:24:48 Flurop Dose total: 445 14:24:48 Fluoroscopy dose: 445 mGy 14:24:54 Dose Area Product 78726 mGy/cm. 14:24:57 Contrast amount:Isovue 300 45ml. 14:25:00 Maximum allowable dose exceeded? No. 14:25:01 Sharps counted by scrub and verified by R.N. 14:25:02 Insertion/operative site no bleeding no hematoma. 14:25:06 Post-op/insertion site Right Femoral artery dressed using a 4 x 4 and Tegaderm. 14:25:08 Post Procedure Pulses reassessed and unchanged 14:25:10 Post procedure rhythm: unchanged. 14:25:12 Estimated blood loss: 5 ml 14:25:14 Post procedure instruction explained to patient.Patient verbalizes understanding. 14:25:14 Patient needs reinforcement of post procedure teaching. 14:25:30 Procedure type changed to Cath procedure, Diagnostic procedure, LHC, LHC w/Coronaries, Sedation Charges, Moderate Sedation up to 15 minutes 14:25:31 Procedure and supply charges have been captured, reviewed, submitted and are correct. 14:25:35 Procedure Complication : No complications 14:25:38 Vital chart was stopped 14:25:44 [facility] Findings: mild to moderate CAD (<70%) 14:25:46 Operative report dictated upon procedure completion. 14:25:46 See physician's report for complete and final results. 14:25:49 Report given to Pre/Post Procedure Room. 14:25:52 Patient transfered to Pre/Post Procedure Room with Stretcher. 14:25:54 Procedure ended. 14:25:54 Full Disclosure recording stopped 14:25:59 End room use (Document Last) 14:26:58 End room use (Document Last) 14:27:22 End room use (Document Last) Device Usage Item Name Manufacture Quantity Catalog Hospital Part Current Minimal L ot# / Number Charge Number Stock Stock Serial# Code ACIST Acist 1 07726 370973 838979 [id number] 20 Syringe Medical (10677) Systems Inc Bag Microtek 1 371074 53038 942117 5 Decanter Medical Inc. () Medline Medline 1 [id number] 793245 88494 681742 5 Cath Pack ([id number]) ACIST Hand Acist 1 66998 614646 898906 036819 5 Control Medical (53894) Systems Inc ACIST Acist 1 22684 670743 597217 534181 5 Manifold Medical (23204) Systems Inc DIAGNOSTIC Cardinal 1 MQ0133 604564 01596 816229 30 MultipBug Music 5Fr catheter set (KD4662) Tegaderm 4 3M 1 1626W 583505 108287 668064 5 x 4 (1626W) SHEATH 5FR Terumo 1 LMW740 802720 929840 118158 5 [place] (ZVP878) EMERALD Cardinal 1 502-455 352750 881157 512253 5 Guide Wire Monteris Medical (502-455) MULTIPACK Cardinal 1 227555 5 JL 4.0 5Fr Health catheter MULTIPACK Cardinal 1 925744 5 3DRC 5Fr Health catheter MULTIPACK Cardinal 1 303664 5 Pigtail 5 Health Fr catheter EXOSEAL 5Fr Cardinal 1 EX500 141152 885292 329859 10 (EX500) Health Signature Audit [place] Stage Time Signature Unsigned Intra-Procedure 07/31/2019 Sahara Birmingham 2:26:58 PM RT(R) Intra-Procedure 07/31/2019 Jabari 2:27:22 PM Joe RN Intra-Procedure 07/31/2019 Kemar Iverson MD 2:28:55 PM Signatures Performing Physician : Signature : Kemar Iverson MD Date : Time : Monitor : Sahara Birmingham RT Signature : Date : Time : Nurse : Jabari Diaz Signature : RN Date : Time : [address] [place] [address]
[~2019-07-31 09:33] MED LIST changes: +HYDROCORTISONE30 G9 TOPICAL; +VITAMIN D5000 UNIT PO
[2019-07-31 11:03] VITALS: BP 120/78; Ht 172.7 cm; Wt 93.6 kg
[2019-07-31 11:28] LABS: BASOPHILS 0.3 % (0-2); EOSINOPHILS 1.5 % (0-7); HEMATOCRIT 43.4 % (42.0-54.0); HEMOGLOBIN 14.2 g/dL (13.5-17.5); IMMATURE GRANULOCYTES 0.1 % (0-5); LYMPHOCYTES 21.2 % (15-50); MCH 32.1 pg (26.0-34.0); MCHC 32.7 g/dL (31.0-37.0); MEAN PLATELET VOLUME 10.7 fL (7.4-10.4); MONOCYTES 10.1 % (2-11); NEUTROPHILS 66.8 % (40-80); PLATELET COUNT 216 10x3/uL (130-400); RBC 4.43 10x6/uL (4.20-6.10); RDW 13.1 % (11.5-14.5); WBC 7.9 10x3/uL (4.8-10.8)
[2019-07-31 11:41] LABS: ANION GAP 10.1 mmol/L (8-16); CALCIUM 9.1 mg/dL (8.5-10.1); CARBON DIOXIDE 28.1 mmol/L (21.0-32.0); CHOL - HDL RATIO 6.2 ratio (2.3-4.9); CREATININE - SERUM 1.2 mg/dL (0.6-1.3); LDL-HDL RATIO 2.9 ratio (1.5-3.5)
[2019-07-31 11:42] LABS: POTASSIUM - SERUM 4.2 mmol/L (3.5-5.1)
--- NOTE | 2019-07-31 14:35 | NUR ---
REC TO ROOM VIA STRETCHER. MONITORING INITIATED. R GROIN TEGADERM OVER 4X4 CDI, GROIN SOFT, NO BLEEDING/HEMATOMA. PPP. HR 82, NSR. BP 117/72, RESP RATE 14, SAT 97% ON 2LNC.
--- NOTE | 2019-07-31 14:50 | NUR ---
R GROIN SOFT, DRESSING CDI, NO BLEEDING/HEMATOMA. R PP STRONG, PALPABLE. NO COMPLAINTS.
--- NOTE | 2019-07-31 15:09 | NUR ---
HR 76, RR 14, SAT 97% ON 2LNC, NIBP 110/64.
--- NOTE | 2019-07-31 15:25 | NUR ---
R GROIN CDI, SOFT. NO HEMATOMA/BLEEDING. HR 82, NSR. SAT 96% ON 2LNC. BP 101/69.
--- NOTE | 2019-07-31 15:36 | NUR ---
HOB RAISED, PROVIDED SANDWICH AND SODA. R GROIN SOFT, CDI, NO BLEEDING/HEMATOMA.
--- NOTE | 2019-07-31 16:05 | NUR ---
R GROIN CDI, SOFT. NO BLEEDING OR HEMATOMA. PPP. IV REMOVED TIP INTACT, MONITORING DISCONTINUED. PT DRESSING WITH SON'S ASSISTANCE.
--- NOTE | 2019-07-31 16:30 | NUR ---
DC INSTRUCTIONS REVIEWED W PT AND SON. PT AMBULATED TO RESTROOM AND BACK TO ROOM WITHOUT ISSUE. DC HOME WITH SON VIA WHEELCHAIR TO PRIVATE CAR. PT HAS ALL BELONGINGS.
== END | disposition home or self-care (01) ==
LOC: D.CATH 06-28 09:00
PROVIDERS: ATTEND Internal Medicine Cardiovascular Disease
DX: R94.30 Abnormal result of cardiovascular function study, unspecified (principal); I25.118 Atherosclerotic heart disease of native coronary artery with other forms of angina pectoris; E78.5 Hyperlipidemia, unspecified

== ENCOUNTER 2020-02-19 14:47 | Emergency (ER) | payer MEDICARE, BC ==
[~2020-02-19] VITALS: Ht 172.7 cm; Wt 94.1 kg
[2020-02-19 15:05] VITALS: Ht 172.7 cm; Wt 94.1 kg
[2020-02-19 15:53] LABS: BASOPHILS 0.5 % (0-2); EOSINOPHILS 6.1 % (0-7); HEMATOCRIT 43.6 % (42.0-54.0); HEMOGLOBIN 14.4 g/dL (13.5-17.5); IMMATURE GRANULOCYTES 0.2 % (0-5); LYMPHOCYTES 24.7 % (15-50); MCH 31.9 pg (26.0-34.0); MCV 96.5 fL (80.0-100.0); MEAN PLATELET VOLUME 10.1 fL (7.4-10.4); MONOCYTES 11.4 % (2-11); NEUTROPHILS 57.1 % (40-80); PLATELET COUNT 194 10x3/uL (130-400); RBC 4.52 10x6/uL (4.20-6.10); RDW 13.1 % (11.5-14.5); WBC 6.2 10x3/uL (4.8-10.8)
[2020-02-19 16:00] LABS: BILIRUBIN NEGATIVE (NEGATIVE); GLUCOSE NEGATIVE (NEGATIVE); KETONE NEGATIVE (NEGATIVE); NITRITE NEGATIVE (NEGATIVE); SPECIFIC GRAVITY 1.025 (1.005-1.020); UROBILINOGEN NORMAL (NORMAL)
[2020-02-19 16:21] LABS: ANION GAP 11.4 mmol/L (8-16); CALCIUM 8.6 mg/dL (8.5-10.1); CARBON DIOXIDE 26.3 mmol/L (21.0-32.0); CREATININE - SERUM 1.3 mg/dL (0.6-1.3); POTASSIUM - SERUM 3.7 mmol/L (3.5-5.1)
[2020-02-19 16:26] LABS: ALBUMIN 3.6 g/dL (3.4-5.0); BILIRUBIN - TOTAL 0.49 mg/dL (0.2-1.3)
[2020-02-19] MEDS ORDERED: CYCLOBENZAPRINE5 MG PO (19:55)
[2020-02-19 20:05] VITALS: BP 132/78
== END 2020-02-19 20:05 | disposition home or self-care (01) ==
LOC: D.ER 14:47
PROVIDERS: Family Medicine
DX: R10.9 Unspecified abdominal pain (principal); Z86.73 Personal history of transient ischemic attack (TIA), and cerebral infarction without residual deficits

== ENCOUNTER → 2020-02-29 10:29 | Outpatient (CLI) | payer MEDICARE, BC ==
[2020-02-19 15:05] VITALS: BMI 31.5
[~2020-02-29 10:29] MED LIST changes: +CYCLOBENZAPRINE5 MG PO
== END | disposition home or self-care (01) ==
LOC: D.CT 10:29
PROVIDERS: ATTEND Clinical Nurse Specialist Adult Health
DX: J98.4 Other disorders of lung (principal)

== ENCOUNTER 2020-04-04 08:40 | Day surgery (SDC) | payer MEDICARE, BC ==
[2020-04-02 10:32] LABS: HEMATOCRIT 44.3 % (42.0-54.0); HEMOGLOBIN 14.4 g/dL (13.5-17.5); MCH 31.4 pg (26.0-34.0); MCHC 32.5 g/dL (31.0-37.0); MCV 96.7 fL (80.0-100.0); RBC 4.58 10x6/uL (4.20-6.10); WBC 6.3 10x3/uL (4.8-10.8)
[2020-04-02 10:44] LABS: ANION GAP 9.9 mmol/L (8-16); CALCIUM 8.6 mg/dL (8.5-10.1); CARBON DIOXIDE 29.5 mmol/L (21.0-32.0); CREATININE - SERUM 1.4 mg/dL (0.6-1.3); POTASSIUM - SERUM 4.4 mmol/L (3.5-5.1)
[2020-04-02 10:45] LABS: APTT 30.5 SECONDS (22.8-39.4); INR 0.95 (0.85-1.17); PROTIME 12.6 SECONDS (11.6-15.0)
[~2020-04-04] VITALS: Ht 172.7 cm; Wt 93.4 kg
[~2020-04-04 08:40] MED LIST changes: +CYANOCOBAL1000 MCG/4 IM
[2020-04-04 11:28] VITALS: Ht 172.7 cm; Wt 93.4 kg
--- NOTE | 2020-04-05 07:53 | OP ---
PATIENT NAME: YVES ALVARADO MEDICAL RECORD: [id number] :52 LOCATION:[facility] ADMISSION DATE: SURGEON: JESUS RUIZ DO DATE OF OPERATION: 04/04/2020 PROCEDURE PERFORMED: Right endoscopic carpal tunnel release. PREOPERATIVE DIAGNOSIS: Right carpal tunnel syndrome. POSTOPERATIVE DIAGNOSIS: Right carpal tunnel syndrome. INDICATIONS: Mr. Alvarado is a 70-year-old male who is well known to me, who has had carpal tunnel syndrome for quite some time and he wanted something done surgically. He had nerve conduction study showing severe carpal tunnel syndrome, both involve bilateral hands, he wanted the right one done first because that hurt him more. The patient was aware of the risk including infection, bleeding, damage to the median nerve and vessels, loss of function of the hand, continued pain and numbness and he signed the consent. SURGEON: Jesus Ruiz DO DESCRIPTION OF PROCEDURE: The patient was taken to the operative suite, laid in supine position, given general anesthetic, given Ancef and an LMA was placed. The right upper extremity was then prepped and draped in sterile fashion. A timeout was performed, everyone was in agreement with correct side, site, patient and procedure. We then began by making an incision centered over the palmaris longus tendon and with a 15 blade scalpel and then just through the skin and then use Ragnells to bluntly dissect down to the median nerve. Once the median nerve was identified, I released the fascia from distal to proximal at the site and then introduced the dilators into the carpal tunnel. I then put in the sheath and put the camera into the sheath. I then cleaned off the transverse carpal ligament with a rasp and a probe and brought in the blade, raised it up and transected. The transcarpal ligament was fat herniated down into the carpal tunnel indicating good release. We removed all the instruments and used a Ragnell and the scissors to ensure there was no remaining fibers to the transcarpal ligament was left. The tourniquet was then let down. It was raised up after exsanguinating the right upper extremity prior to starting to 250 mmHg, it was up for 9 minutes. I then injected the site with 0.25% Marcaine with epinephrine and then Cristal Espinal, certified breastfeeding educator, closed the site with 5-0 Monocryl in inverted interrupted fashion. Steri-Strips, Adaptic, 4 x 4's, Kerlix, and Coban was lightly wrapped on the wrist. He was then awakened and taken to recovery in stable condition. BLOOD LOSS: Minimal. COMPLICATION: None. TRANSINT:[id number] Voice Confirmation ID: [id number] DOCUMENT ID: [id number] OPERATIVE REPORT [id number] YVES ALVARADO MICHAEL D, DO at 0753 CC: [id number] DICTATION DATE: 04/04/20 1426 DEFENSIVE DRIVING INSTRUCTOR: 04/04/20 2252 [facility] 04/04/20 [facility] [address] [place] [address]
== END 2020-04-04 16:10 | disposition home or self-care (01) ==
LOC: D.OPS 08:40 → D.PAN 18:00 → D.OPS 18:00
PROVIDERS: ATTEND Orthopaedic Surgery
DX: G56.01 Carpal tunnel syndrome, right upper limb (principal); G56.02 Carpal tunnel syndrome, left upper limb; I25.10 Atherosclerotic heart disease of native coronary artery without angina pectoris; I65.23 Occlusion and stenosis of bilateral carotid arteries; I12.9 Hypertensive chronic kidney disease with stage 1 through stage 4 chronic kidney disease, or unspecified chronic kidney disease; N18.3 Chronic kidney disease, stage 3 (moderate); E78.5 Hyperlipidemia, unspecified

== ENCOUNTER → 2020-04-17 13:12 | Outpatient (CLI) | payer MEDICARE, BC ==
[2020-04-04 11:28] VITALS: BMI 31.3
== END | disposition home or self-care (01) ==
LOC: D.US 13:12
PROVIDERS: ATTEND Family Medicine
DX: I65.23 Occlusion and stenosis of bilateral carotid arteries (principal); R09.89 Other specified symptoms and signs involving the circulatory and respiratory systems

== ENCOUNTER 2020-05-09 05:35 | Day surgery (SDC) | payer MEDICARE, BC ==
[~2020-05-09] VITALS: Ht 172.7 cm; Wt 9.2 kg
[2020-05-09 06:02] LABS: HEMATOCRIT 42.6 % (42.0-54.0); HEMOGLOBIN 13.7 g/dL (13.5-17.5); MCHC 32.2 g/dL (31.0-37.0); MCV 96.4 fL (80.0-100.0); MEAN PLATELET VOLUME 10.5 fL (7.4-10.4); RBC 4.42 10x6/uL (4.20-6.10); RDW 13.3 % (11.5-14.5); WBC 6.2 10x3/uL (4.8-10.8)
[2020-05-09 06:06] LABS: APTT 29.9 SECONDS (22.8-39.4); INR 0.96 (0.85-1.17); PROTIME 12.7 SECONDS (11.6-15.0)
[2020-05-09 06:09] LABS: ANION GAP 10.7 mmol/L (8-16); CALCIUM 8.9 mg/dL (8.5-10.1); CARBON DIOXIDE 27.5 mmol/L (21.0-32.0); CREATININE - SERUM 1.4 mg/dL (0.6-1.3); POTASSIUM - SERUM 4.2 mmol/L (3.5-5.1)
[2020-05-09 06:15] VITALS: BP 114/72; Ht 172.7 cm; Wt 9.2 kg
--- NOTE | 2020-05-10 09:02 | OP ---
PATIENT NAME: YVES ALVARADO MEDICAL RECORD: [id number] :52 LOCATION:[facility]OPS ADMISSION DATE: SURGEON: JESUS RUIZ DO DATE OF OPERATION: 05/09/2020 PROCEDURE PERFORMED: Left endoscopic carpal tunnel release. PREOPERATIVE DIAGNOSIS: Left carpal tunnel syndrome. POSTOPERATIVE DIAGNOSIS: Left carpal tunnel syndrome. INDICATIONS: Mr. Alvarado is a 70-year-old male who has had carpal tunnel syndrome for quite some time. I did his right one a couple of weeks ago. He wanted the left one done today. He was aware of the risks including infection, bleeding, damage to nerves and vessels including the median nerve, continued pain, need for further surgery, swelling, and even and he signed the consent. SURGEON: Jesus Ruiz DO DESCRIPTION OF PROCEDURE: The patient was taken to the operative suite, laid in supine position, given 2 g of Ancef preoperatively. The patient was sedated and LMA was placed. The left upper extremity was then prepped and draped in sterile fashion. Time-out was performed. Everyone was in agreement with the correct site, side, patient, and procedure. I then exsanguinated the left upper extremity with an Esmarch. Tourniquet was inflated to 250 mmHg and was up for 8 minutes. I then began by making an incision centered over the palmaris longus tendon at the volar wrist crease. I then made an incision with a 15 blade scalpel and then made blunt dissection down with Ragnell to the median nerve, released the fascia from distal to proximal at the wrist, and then entered the carpal tunnel with the dilators. I then put in the sheath and the camera. I used a probe and a rasp to clean off transcarpal ligament. I then brought the blade in and raised it up and transected the transcarpal ligament. I then removed all fat and herniated then down into the carpal tunnel. I then brought in a Ragnell and scissors and under direct magnification with loupes, I saw that the transverse carpal ligament was transected. I then injected the site with 10 mL of 0.25% Marcaine with epinephrine. The tourniquet was let down. Steven Nash, certified ophthalmology surgical technician, then closed the site with 5-0 Monocryl in inverted interrupted fashion. Steri-Strips, Adaptic, 4 x 4, and cast padding and Coban was lightly wrapped on the hand. He was awakened and taken to recovery in stable condition. Blood loss minimal. Complications none. Tourniquet was up for 8 minutes. NTS:[id number] Voice Confirmation ID: [id number] DOCUMENT ID: [id number] JESUS RUIZ DO at 0902 CC: [id number] DICTATION DATE: 05/09/20835 MEDICAL CODING SPECIALIST: 05/09/201952 [facility] 05/09/20 [facility] [address] [place] [address]
== END 2020-05-09 08:40 | disposition home or self-care (01) ==
LOC: D.OPS 05:35 → D.PAN 07:45 → D.OPS 07:45
PROVIDERS: Anesthesiology; ATTEND Orthopaedic Surgery
DX: G56.02 Carpal tunnel syndrome, left upper limb (principal); I25.10 Atherosclerotic heart disease of native coronary artery without angina pectoris; N18.3 Chronic kidney disease, stage 3 (moderate); E78.5 Hyperlipidemia, unspecified; I10 Essential (primary) hypertension; G56.01 Carpal tunnel syndrome, right upper limb

== ENCOUNTER → 2020-05-13 08:06 | Outpatient (CLI) | payer MEDICARE, BC ==
[2020-05-09 06:15] VITALS: BMI 31.3
== END | disposition home or self-care (01) ==
LOC: D.RT 03-11 09:00
PROVIDERS: ATTEND Internal Medicine Pulmonary Disease
DX: R06.09 Other forms of dyspnea (principal); J42 Unspecified chronic bronchitis

== ENCOUNTER → 2020-05-26 11:27 | Outpatient (CLI) | payer MEDICARE, BC ==
[2020-05-09 06:15] VITALS: BMI 31.3
== END | disposition home or self-care (01) ==
LOC: D.US 11:00
PROVIDERS: ATTEND Internal Medicine Cardiovascular Disease
DX: I65.23 Occlusion and stenosis of bilateral carotid arteries (principal)

== ENCOUNTER 2020-11-30 19:10 | Emergency (ER) | payer MEDICARE, BC ==
[~2020-11-30] VITALS: Ht 172.7 cm; Wt 93.6 kg
[~2020-11-30 19:10] MED LIST changes: +JANTOVEN5 MG PO; +PERCOCET 5-3251 TAB PO
[2020-11-30 19:18] VITALS: BP 129/68; Ht 172.7 cm; Wt 93.6 kg
[2020-11-30 20:14] LABS: BASOPHILS 0.4 % (0-2); EOSINOPHILS 2.7 % (0-7); HEMATOCRIT 42.1 % (42.0-54.0); HEMOGLOBIN 13.8 g/dL (13.5-17.5); IMMATURE GRANULOCYTES 0.4 % (0-5); LYMPHOCYTE ABS# 1.86 10x3/uL (1.32-3.57); LYMPHOCYTES 33.2 % (15-50); MCHC 32.8 g/dL (31.0-37.0); MCV 94.6 fL (80.0-100.0); MEAN PLATELET VOLUME 10.6 fL (7.4-10.4); MONOCYTES 10.7 % (2-11); NEUTROPHIL ABS# 2.95 10x3/uL (1.78-5.38); NEUTROPHILS 52.6 % (40-80); PLATELET COUNT 209 10x3/uL (130-400); RBC 4.45 10x6/uL (4.20-6.10); RDW 13.3 % (11.5-14.5); WBC 5.6 10x3/uL (4.8-10.8)
[2020-11-30] MEDS ORDERED: CEPHALEXIN500 M1 PO (20:26)
[2020-11-30 20:28] LABS: INR 2.27 (0.85-1.17); PROTIME 23.3 SECONDS (11.6-15.0)
== END 2020-11-30 20:43 | disposition home or self-care (01) ==
LOC: D.ER 19:10
PROVIDERS: Emergency Medicine
DX: S61.211A Laceration without foreign body of left index finger without damage to nail, initial encounter (principal); W45.8XXA Other foreign body or object entering through skin, initial encounter; Y93.9 Activity, unspecified; Y92.9 Unspecified place or not applicable; I12.9 Hypertensive chronic kidney disease with stage 1 through stage 4 chronic kidney disease, or unspecified chronic kidney disease; N18.9 Chronic kidney disease, unspecified

== ENCOUNTER → 2021-01-26 10:01 | Outpatient (CLI) | payer MEDICARE, BC ==
[2020-11-30 19:18] VITALS: BMI 31.3
[~2021-01-26 10:01] MED LIST changes: +CEPHALEXIN500 M1 PO
== END | disposition home or self-care (01) ==
LOC: D.US 10:00
PROVIDERS: ATTEND Internal Medicine Cardiovascular Disease
DX: I65.29 Occlusion and stenosis of unspecified carotid artery (principal)

== ENCOUNTER 2021-02-03 05:22 | Day surgery (SDC) | payer MEDICARE, BC ==
[2021-02-02 12:01] LABS: ANION GAP 7.5 mmol/L (8-16); CALCIUM 9.2 mg/dL (8.5-10.1); CARBON DIOXIDE 31.2 mmol/L (21.0-32.0); CREATININE - SERUM 1.4 mg/dL (0.6-1.3); POTASSIUM - SERUM 4.7 mmol/L (3.5-5.1)
[2021-02-02 12:05] LABS: BASOPHILS 0.6 % (0-2); EOSINOPHILS 2.6 % (0-7); HEMATOCRIT 47.1 % (42.0-54.0); HEMOGLOBIN 15.4 g/dL (13.5-17.5); LYMPHOCYTES 17.7 % (15-50); MCH 30.4 pg (26.0-34.0); MCHC 32.7 g/dL (31.0-37.0); MEAN PLATELET VOLUME 8.4 fL (7.4-10.4); MONOCYTES 11.4 % (2-11); NEUTROPHILS 67.7 % (40-80); PLATELET COUNT 203 10x3/uL (130-400); RBC 5.06 10x6/uL (4.20-6.10); RDW 14.6 % (11.5-14.5); WBC 8.1 10x3/uL (4.8-10.8)
[2021-02-02 12:06] LABS: INR 1.37 (0.85-1.17); PROTIME 15.7 SECONDS (11.6-15.0)
[~2021-02-03] VITALS: Ht 172.7 cm; Wt 98.2 kg
[2021-02-03] MEDS ORDERED: HYDROCODON-ACE1 EAC7 PO (06:49)
[2021-02-03 07:11] VITALS: BP 138/81; Ht 172.7 cm; Wt 98.2 kg
--- NOTE | 2021-02-03 08:58 | OP ---
PATIENT NAME: YVES ALVARADO MEDICAL RECORD: [id number] :52 LOCATION:[facility] ADMISSION DATE: SURGEON: JESUS RUIZ DO DATE OF OPERATION: 02/03/2021 PROCEDURE PERFORMED: Left ring finger A1 yohan release. PREOPERATIVE DIAGNOSIS: Left ring trigger finger. POSTOPERATIVE DIAGNOSIS: Left ring trigger finger. INDICATIONS: Mr. Alvarado is a 71-year-old male who has had left several trigger fingers. This is the next one in succession for him and wanted a release. He is aware of the risks and benefits of the procedure including infection, bleeding, damage to nerves or vessel in the area, continued pain and locking, damage to the digital arteries and nerves, need for further surgery and he signed the consent. SURGEON: Jesus Ruiz DO DESCRIPTION OF THE PROCEDURE: The patient was taken to the operative suite, laid in supine position, given general anesthetic and LMA was placed. The patient was given 2 grams of Ancef preoperatively. The left upper extremity was prepped and draped in sterile fashion. A timeout was performed. Everyone was in agreement with the correct side, site, patient, and procedure. Then, exsanguinated the left lower extremity with an Esmarch, tourniquet was inflated to 250 mmHg, it was up for 3 minutes. I then made an incision over the distal palmar crease in the hand. I made an incision just through the skin and then used Ragnells to bluntly dissect down to the A1 yohan. Released the A1 yoahn out through, it was cleaned off and ensured that the flexor tendons glided smoothly without catching at that point. I then let the tourniquet down and injected with 0.25% Marcaine without epinephrine, approximately 10 mL of it in the site and then used a pickup and Bovie to coagulate any bleeding. We then closed with 4-0 nylon in a horizontal mattress fashion. I then dressed it with Adaptic, 4 x 4s, cast padding, and Keven wrap. He was then awakened and taken to recovery in stable condition. BLOOD LOSS: Minimal. COMPLICATIONS: None. TRANSINT:[id number] Voice Confirmation ID: [id number] DOCUMENT ID: [id number] JESUS RUIZ DO at 08 CC: [id number] DICTATION DATE: 02/03/2137 SKIDDER LOADER: 02/03/21 0827 [facility] [address] [place] [id number]
--- NOTE | 2021-02-03 09:10 | NUR ---
0900 - IV D/C'D WITH TIP INTACT. PRESSURE DRESSING TO SITE DUE TO HISTORY OF ANTICOAGULANT USE. DRESSED FOR DISCHARGE.
--- NOTE | 2021-02-03 09:39 | NUR ---
0930 - PATIENT DISCHARGED VIA WHEELCHAIR TO PRIVATE CAR.
== END 2021-02-03 09:30 | disposition home or self-care (01) ==
LOC: D.OPS 05:22
PROVIDERS: Anesthesiology; ATTEND Orthopaedic Surgery
DX: M65.342 Trigger finger, left ring finger (principal); M79.645 Pain in left finger(s)